=== PATIENT | female | born 1995 | race Caucasian/White ===

== ENCOUNTER 2020-06-27 10:56 | Emergency (ER) | payer OTHER ==
[2020-06-27 11:31] VITALS: BP 154/108; PULSE 105; RESP 18; TEMP 98.1
--- NOTE | 2020-06-27 11:34 | ED ---
General Adult HPI - General Stated complaint: ENT Time Seen by Provider: 06/27/20 11:32 Source: patient, RN notes reviewed Mode of arrival: ambulatory Limitations: no limitations - History of Present Illness Initial comments: This 25-year-old female presents emergency Department chief complaint of sore throat. Patient states started last day or so. Patient states her tonsils are swollen, there is exudates. She states she's had fevers and chills. No cough or cold-like symptoms. Patient denies any headache or dizziness. Patient denies other complaints. - Related Data Previous Rx's Medication Instructions Recorded Permethrin 5% Cream [Elimite] 1 applic TOPICAL ONCE #60 g 12/15/13 Amoxicillin 500 mg PO Q8H #30 capsule 06/27/20 Allergies Allergy/AdvReac Type Severity Reaction Status Date / Time cephalexin [From Keflex] Allergy Swelling Verified 06/27/20 11:31 Review of Systems ROS Statement: Those systems with pertinent positive or pertinent negative responses have been documented in the HPI. ROS Other: All systems not noted in ROS Statement are negative. Past Medical History Past Medical History: No Reported History History of Any Multi-Drug Resistant Organisms: None Reported Past Surgical History: No Surgical Hx Reported Past Psychological History: No Psychological Hx Reported Past Alcohol Use History: Occasional Past Drug Use History: None Reported General Exam Limitations: no limitations General appearance: alert, in no apparent distress Head exam: Present: atraumatic, normocephalic, normal inspection Eye exam: Present: normal appearance, PERRL, EOMI. Absent: scleral icterus, conjunctival injection, periorbital swelling ENT exam: Present: mucous membranes moist, TM's normal bilaterally, normal external ear exam. Absent: normal oropharynx (Erythematous posterior pharynx, exudates noted) Neck exam: Present: normal inspection, full ROM. Absent: tenderness, m eningismus, lymphadenopathy Respiratory exam: Present: normal lung sounds bilaterally. Absent: respiratory distress, wheezes, rales, rhonchi, stridor Cardiovascular Exam: Present: regular rate, normal rhythm, normal heart sounds. Absent: systolic murmur, diastolic murmur, rubs, gallop, clicks Course Vital Signs 06/27/20 11:29 Temperature 98.1 F Pulse Rate 105 H Respiratory 18 Rate Blood Pressure 154/108 O2 Sat by Pulse 99 Oximetry Medical Decision Making - Medical Decision Making Patient has clinical strep parameters, tonsillitis. Patient was started on amoxicillin. Patient is concerned about exposure to Covid. Swab was performed. Patient discharged in stable condition. Disposition Clinical Impression: Acute pharyngitis, Tonsillitis Disposition: HOME SELF-CARE Condition: Stable Instructions (If sedation given, give patient instructions): Pharyngitis (ED) Additional Instructions: Please return to the Emergency Department if symptoms worsen or any other concerns. Prescriptions: Amoxicillin 500 mg PO Q8H #30 capsule Is patient prescribed a controlled substance at d/c from ED?: No Referrals: None,Stated [Primary Care Provider] - 1-2 days Time of Disposition: 11:34
== END 2020-06-27 13:06 | disposition home or self-care (01) ==
LOC: EC 10:56
DX: J03.90 Acute tonsillitis, unspecified (principal)
CPT/HCPCS: 87635; 99283

== ENCOUNTER 2021-01-05 09:45 | Emergency (ER) | payer OTHER ==
--- NOTE | 2021-01-05 10:20 | ED ---
URI HPI - General Chief Complaint: Upper Respiratory Infection Stated Complaint: sorethroat Time Seen by Provider: 01/05/21 10:11 Source: patient, RN notes reviewed Mode of arrival: ambulatory Limitations: no limitations - History of Present Illness Initial Comments: Patient is 25-year-old female presents to ED for cough and congestion. Patient states started this past Wednesday just generalized cough congestion and slight fatigue. Patient denies any nausea vomiting fever, any changes in diet, bowel movements, urination. Patient denies any shortness of breath at this time. Patient is currently staying at the [facility]. Patient reports similar symptoms and child is brought with. - Related Data Previous Rx's Medication Instructions Recorded Permethrin 5% Cream [Elimite] 1 applic TOPICAL ONCE #60 g 12/15/13 Amoxicillin 500 mg PO Q8H #30 capsule 06/27/20 Azithromycin [Zithromax Z-pack (6 0 mg PO DIRECTED #1 packet 01/05/21 tabs)] Allergies Allergy/AdvReac Type Severity Reaction Status Date / Time cephalexin [From Keflex] Allergy Swelling Verified 01/05/21 09:59 Review of Systems ROS Statement: Those systems with pertinent positive or pertinent negative responses have been documented in the HPI. ROS Other: All systems not noted in ROS Statement are negative. Past Medical History Past Medical History: No Reported History History of Any Multi-Drug Resistant Organisms: None Reported Past Surgical History: No Surgical Hx Reported Past Psychological History: No Psychological Hx Reported Smoking Status: Vaper Past Alcohol Use History: Occasional Past Drug Use History: None Reported General Exam Limitations: no limitations General appearance: alert, in no apparent distress Expanded Throat exam: other (Erythematous posterior pharynx) Respiratory exam: Present: normal lung sounds bilaterally. Absent: respiratory distress, wheezes, rales, rhonchi, stridor Cardiovascular Exam: Present: normal rhythm, tachycardia, normal heart sounds. Absent: systolic murmur, diastolic murmur, rubs, gallop, clicks GI/Abdominal exam: Present: soft, normal bowel sounds. Absent: distended, tenderness, guarding, rebound, rigid Neurological exam: Present: alert, oriented X3 Skin exam: Present: warm, dry, intact, normal color. Absent: rash Course Vital Signs 01/05/21 09:57 Temperature 98.0 F Pulse Rate 101 H Respiratory 18 Rate Blood Pressure 133/91 O2 Sat by Pulse 98 Oximetry Medical Decision Making - Medical Decision Making Patient's COVID-19 is negative. Patient's daughter is positive for pneumonia, negative RSV and influenza patient has upper respiratory infection discharged in stable condition. - Lab Data Lab Results 01/05/21 Range/Units 10:25 Coronavirus (PCR) Not Detected (Not Detectd) Disposition Clinical Impression: Upper respiratory tract infection Disposition: HOME SELF-CARE Condition: Stable Instructions (If sedation given, give patient instructions): Upper Respiratory Infection (ED) Additional Instructions: Please return to the Emergency Department if symptoms worsen or any other concerns. Prescriptions: Azithromycin [Zithromax Z-pack (6 tabs)] 0 mg PO DIRECTED #1 packet Is patient prescribed a controlled substance at d/c from ED?: No Referrals: Scarlet Richey MD [Primary Care Provider] - 1-2 days Time of Disposition: 11:09
[2021-01-05 11:25] VITALS: BP 128/78; PULSE 78; RESP 16; TEMP 98.4
== END 2021-01-05 11:24 | disposition home or self-care (01) ==
LOC: EC 09:45
DX: J06.9 Acute upper respiratory infection, unspecified (principal); Z20.822 Contact with and (suspected) exposure to COVID-19; F17.290 Nicotine dependence, other tobacco product, uncomplicated
CPT/HCPCS: 87635; 99283

== ENCOUNTER 2021-08-29 07:03 | Emergency (ER) | payer OTHER ==
[2021-08-29 07:27] VITALS: RESP 16; TEMP 98.2
[2021-08-29] MEDS ORDERED: SODIUM CHLORIDE 0.9% 1,000 ML IV STA (07:47)
[2021-08-29] MEDS ORDERED: diphenhydrAMINE 50 MG/ML 1 ML VIAL IVP STA (07:47)
--- NOTE | 2021-08-29 07:53 | ED ---
General Adult HPI - General Chief complaint: Nausea/Vomiting/Diarrhea Stated complaint: Vomiting, 16 weeks Time Seen by Provider: 08/29/21 07:40 Source: patient, RN notes reviewed, old records reviewed Mode of arrival: ambulatory Limitations: no limitations - History of Present Illness Initial comments: 26-year-old female presents to the emergency room with several weeks of nausea and vomiting. Patient states that she is [address] Armas and has been on Zofran and then changed to Reglan 2 days ago. She states that she's lost 8 pounds in the past 2 days,she was 179 pounds is now 171. States that she cannot eat or drink anything without vomiting. She states her abdomen hurts from persistent vomiting. She denies any vaginal bleeding, discharge or dysuria. This is her second , she has a 2-year-old. She states that she does vape daily. -: week(s) Location: abdomen Severity scale (1-10): 3 Quality: dull Consistency: intermittent Improves with: none Worsens with: other (vomiting) Associated Symptoms: nausea/vomiting, other (weight loss 8 pounds in 2 days) Treatments Prior to Arrival: other (Zofran and Reglan) - Related Data Home Medications Medication Instructions Recorded Confirmed Metoclopramide [Reglan] 10 mg PO Q8H PRN 08/29/21 08/29/21 Vits96/Iron Fum/Folic 1 tab PO DAILY 08/29/21 08/29/21 [ Tablet] Allergies Allergy/AdvReac Type Severity Reaction Status Date / Time cephalexin [From Keflex] Allergy Swelling Verified 08/29/21 08:20 Review of Systems ROS Statement: Those systems with pertinent positive or pertinent negative responses have been documented in the HPI. ROS Other: All systems not noted in ROS Statement are negative. Past Medical History Past Medical History: No Reported History History of Any Multi-Drug Resistant Organisms: None Reported Past Surgical History: No Surgical Hx Reported Past Psychological History: No Psychological Hx Reported Smoking Status: Vaper Past Alcohol Use History: Occasional Past Drug Use History: Marijuana General Exam Limitations: no limitations General appearance: alert, in no apparent distress Head exam: Present: atraumatic Eye exam: Present: normal appearance. Absent: scleral icterus, conjunctival injection, periorbital swelling Neck exam: Present: full ROM. Absent: tenderness, meningismus Respiratory exam: Present: normal lung sounds bilaterally. Absent: respiratory distress, accessory muscle use Cardiovascular Exam: Present: regular rate, normal heart sounds GI/Abdominal exam: Present: soft. Absent: tenderness, rigid Extremities exam: Present: normal inspection, full ROM, normal capillary refill. Absent: tenderness, pedal edema Back exam: Present: normal inspection, full ROM. Absent: tenderness, CVA tenderness (R), CVA tenderness (L), rash noted Neurological exam: Present: alert, oriented X3, normal gait Psychiatric exam: Present: anxious Skin exam: Present: warm, dry, intact, normal color. Absent: cyanosis, diaphoretic, petechiae, pallor Course Vital Signs 08/29/21 08/29/21 08/29/21 07:24 08:15 09:24 Temperature 98.2 F Pulse Rate 94 83 92 Respiratory 16 16 16 Rate Blood Pressure 122/89 120/84 118/90 O2 Sat by Pulse 97 96 100 Oximetry Medical Decision Making - Medical Decision Making Patient's potassium is 2.6. She was given 40 of K-Dur orally and offered 10meq IV piggyback but refused. I did discuss admission for hypokalemia and persistent hyperemesis in and she declined stating she has noted take care of [id number] son. She states that she will sign out AGAINST MEDICAL ADVICE if necessary. She states that she is feeling better after the Benadryl and IV fluids and will increase her potassium intake at home and follow up with her INSURANCE COUNSELOR. Patient is capable of making her own decisions and I explained the concerns regarding hypokalemia. She understands the risks of leaving but states needs to do what is best for her child at home. Case discussed with Dr. Castillo. - Lab Data Result diagrams: 08/29/21 08:05 08/29/21 08:05 Lab Results 08/29/21 08/29/21 08/29/21 Range/Units 08:05 08:05 08:05 WBC 5.8 (3.8-10.6) k/uL RBC 4.48 (3.80-5.40) m/uL Hgb 11.6 (11.4-16.0) gm/dL Hct 34.8 (34.0-46.0) % MCV 77.6 L (80.0-100.0) fL MCH 26.0 (25.0-35.0) pg MCHC 33.5 (31.0-37.0) g/dL RDW 15.7 H (11.5-15.5) % Plt Count 240 (150-450) k/uL MPV 10.2 Neutrophils % 67 % Lymphocytes % 23 % Monocytes % 6 % Eosinophils % 1 % Basophils % 0 % Neutrophils # 3.9 (1.3-7.7) k/uL Lymphocytes # 1.3 (1.0-4.8) k/uL Monocytes # 0.4 (0-1.0) k/uL Eosinophils # 0.1 (0-0.7) k/uL Basophils # 0.0 (0-0.2) k/uL Microcytosis Slight Sodium 135 L (137-145) mmol/L Potassium 2.6 L* (3.5-5.1) mmol/L Chloride 97 L (98-107) mmol/L Carbon Dioxide 27 (22-30) mmol/L Anion Gap 11 mmol/L BUN 3 L (7-17) mg/dL Creatinine 0.41 L (0.52-1.04) mg/dL Est GFR (CKD-EPI)AfAm >90 (>60 ml/min/1.73 sqM) Est GFR (CKD-EPI)NonAf >90 (>60 ml/min/1.73 sqM) Glucose 109 H (74-99) mg/dL Calcium 9.7 (8.4-10.2) mg/dL Total Bilirubin 0.2 (0.2-1.3) mg/dL AST 70 H (14-36) U/L ALT 28 (4-34) U/L Alkaline Phosphatase 98 (38-126) U/L Total Protein 7.3 (6.3-8.2) g/dL Albumin 3.8 (3.5-5.0) g/dL Amylase 58 (30-110) U/L Lipase 33 (23-300) U/L Urine Color Yellow Urine Appearance Cloudy H (Clear) Urine pH 6.5 (5.0-8.0) Ur Specific [place] 1.022 (1.001-1.035) Urine Protein 1+ H (Negative) Urine Glucose (UA) Negative (Negative) Urine Ketones Negative (Negative) Urine Blood Small H (Negative) Urine Nitrite Negative (Negative) Urine Bilirubin Negative (Negative) Urine Urobilinogen <2.0 (<2.0) mg/dL Ur Leukocyte Esterase Small H (Negative) Urine RBC 38 H (0-5) /hpf Urine WBC 8 H (0-5) /hpf Ur Squamous Epith Cells 28 H (0-4) /hpf Urine Mucus Many H (None) /hpf Disposition Clinical Impression: Hyperemesis arising during Disposition: Left Against Medical Advice Instructions (If sedation given, give patient instructions): Acute Nausea and Vomiting (ED) Is patient prescribed a controlled substance at d/c from ED?: No Referrals: None,Stated [Primary Care Provider] - 1-2 days Time of Disposition: 09:47
[2021-08-29 08:19] LABS: Basophils % (A) 0 %; Eosinophils # (A) 0.1 k/uL (0-0.7); Eosinophils % (A) 1 %; HCT 34.8 % (34.0-46.0); HGB 11.6 gm/dL (11.4-16.0); Lymphocytes # (A) 1.3 k/uL (1.0-4.8); Lymphocytes % (A) 23 %; MCHC 33.5 g/dL (31.0-37.0); MCV 77.6 fL (80.0-100.0); Mean Platelet Volume 10.2; Microcytosis Slight; Monocytes # (A) 0.4 k/uL (0-1.0); Monocytes % (A) 6 %; Neutrophils # (A) 3.9 k/uL (1.3-7.7); Neutrophils % (A) 67 %; Platelet Count 240 k/uL (150-450); RBC 4.48 m/uL (3.80-5.40); RDW 15.7 % (11.5-15.5); WBC 5.8 k/uL (3.8-10.6)
[2021-08-29 08:32] LABS: Appearance,Urine Cloudy (Clear); Bilirubin,Urine Negative (Negative); Blood,Urine Small (Negative); Color,Urine Yellow; Glucose,Urine (UA) Negative (Negative); Ketones,Urine Negative (Negative); Leukocyte Esterase,Urine Small (Negative); Mucus,Urine Many /hpf; Nitrite,Urine Negative (Negative); PH, Urine 6.5 (5.0-8.0); Protein,Urine 1+ (Negative); RBC,Urine 38 /hpf (0-5); Specific Gravity,Urine 1.022 (1.001-1.035); Squamous Epithelial Cell,Urine 28 /hpf (0-4); Urobilinogen,Urine <2.0 mg/dL (<2.0); WBC,Urine 8 /hpf (0-5)
[2021-08-29 08:35] LABS: ALT 28 U/L (4-34); AST 70 U/L (14-36); African American GFR (CKD) >90 (>60 ml/min/1.73 sqM); Alkaline Phosphatase 98 U/L (38-126); Blood Urea Nitrogen 3 mg/dL (7-17); Calcium 9.7 mg/dL (8.4-10.2); Carbon Dioxide 27 mmol/L (22-30); Lipase 33 U/L (23-300); Non-African American GFR(CKD) >90 (>60 ml/min/1.73 sqM); Total Bilirubin 0.2 mg/dL (0.2-1.3)
[2021-08-29 09:05] LABS: Albumin 3.8 g/dL (3.5-5.0); Amylase 58 U/L (30-110); Anion Gap 11 mmol/L; Chloride 97 mmol/L (98-107); Glucose 109 mg/dL (74-99); Sodium 135 mmol/L (137-145); Total Protein 7.3 g/dL (6.3-8.2)
[2021-08-29 09:11] LABS: Potassium 2.6 mmol/L (3.5-5.1)
[2021-08-29] MEDS ORDERED: POTASSIUM CHLORIDE ER 20 MEQ TAB.ER PO STA (09:17)
[2021-08-29 09:26] VITALS: BP 118/90; PULSE 92
[2021-08-29] MEDS ORDERED: POTASSIUM CHLORIDE 10 MEQ in WATER FOR INJECTION 1 100ML.BAG IVPB STA (09:26)
== END 2021-08-29 09:41 | disposition left against medical advice (07) ==
LOC: EC 07:03
DX: O21.0 Mild hyperemesis gravidarum (principal); F17.209 Nicotine dependence, unspecified, with unspecified nicotine-induced disorders; Z88.1 Allergy status to other antibiotic agents; Z3A.16 16 weeks gestation of pregnancy
CPT/HCPCS: 36415; 80053; 82150; 83690; 85025; 81001; 99285; 96374; 96361; J1200

== ENCOUNTER 2021-09-21 06:11 | Emergency (ER) | payer OTHER ==
[2021-09-21] MEDS ORDERED: SODIUM CHLORIDE 0.9% 1,000 ML IV STA ×2 (06:33→10:14)
[2021-09-21] MEDS ORDERED: METOCLOPRAMIDE 5 MG/ML 2 ML VIAL IVP STA (06:33)
[2021-09-21] MEDS ORDERED: PYRIDOXINE 100 MG/ML 1 ML VIAL IVP ONE (06:33)
--- NOTE | 2021-09-21 06:41 | ED ---
Nausea/Vomiting/Diarrhea HPI - General Chief complaint: Nausea/Vomiting/Diarrhea Stated complaint: vomiting Time Seen by Provider: 09/21/21 06:21 Source: patient, RN notes reviewed Mode of arrival: ambulatory Limitations: no limitations - History of Present Illness Initial comments: This is a 26-year-old female who is 19 weeks and presents to the emergency department for nausea and vomiting. Patient states that one week ago she developed fevers, chills, and body aches. She took an at home COVID test at that time which was negative. Those symptoms have resolved, however 3-4 days ago, she developed nausea and vomiting. She has been trying to control this with Benadryl, however this has not improved her symptoms. She then tried taking a Reglan this morning, however she proceeded to throw it back up. She was evaluated here on 08/29 for dehydration secondary to nausea and vomiting. She was found to have hypokalemia. It was advised that she stay for observation, however she ended up leaving AMA, as she had to take care of her 2-year-old son. She does have a follow-up with Dr. Armas tomorrow for an anatomy scan and physician visit. Denies any vaginal bleeding or discharge. Denies any fevers, chills, sore throat, cough, dyspnea, chest pain, palpitations, diarrhea, back pain, or headaches. MD complaint: nausea, vomiting Onset/Timin -: days(s) Associated Abdominal Pain: Yes (Generalized soreness from repeated episodes of vomiting) - Related Data Home Medications Medication Instructions Recorded Confirmed Metoclopramide [Reglan] 10 mg PO Q8H PRN 08/29/21 08/29/21 Vits96/Iron Fum/Folic 1 tab PO DAILY 08/29/21 08/29/21 [ Tablet] Previous Rx's Medication Instructions Recorded Famotidine [Pepcid] 20 mg PO BID PRN #20 tablet 09/21/21 Nitrofurantoin Monohyd/M-Cryst 100 mg PO Q12HR 7 Days #14 cap 09/21/21 [Macrobid] Ondansetron Odt [Zofran Odt] 4 mg PO Q8HR PRN #20 tab 09/21/21 Allergies Allergy/AdvReac Type Severity Reaction Status Date / Time cephalexin [From Keflex] Allergy Swelling Verified 09/21/21 06:17 Review of Systems ROS Statement: Those systems with pertinent positive or pertinent negative responses have been documented in the HPI. ROS Other: All systems not noted in ROS Statement are negative. Past Medical History Past Medical History: No Reported History History of Any Multi-Drug Resistant Organisms: None Reported Past Surgical History: No Surgical Hx Reported Past Psychological History: No Psychological Hx Reported Smoking Status: Vaper Past Alcohol Use History: Occasional Past Drug Use History: Marijuana General Exam Limitations: no limitations General appearance: alert, in no apparent distress Head exam: Present: atraumatic, normocephalic, normal inspection ENT exam: Present: normal exam, mucous membranes moist, TM's normal bilaterally, normal external ear exam, other (tonsillar hypertrophy which is chronic per the patient) Neck exam: Present: normal inspection. Absent: tenderness, meningismus, lymphadenopathy Respiratory exam: Present: normal lung sounds bilaterally. Absent: respiratory distress, wheezes, rales, rhonchi, stridor Cardiovascular Exam: Present: regular rate, normal rhythm, normal heart sounds. Absent: systolic murmur, diastolic murmur, rubs, gallop, clicks GI/Abdominal exam: Present: normal bowel sounds Neurological exam: Present: alert, oriented X3, CN II-XII intact Psychiatric exam: Present: normal affect, normal mood Skin exam: Present: warm, dry, intact, normal color. Absent: rash Course Vital Signs 09/21/21 09/21/21 09/21/21 06:17 07:31 09:40 Temperature 98.2 F 98.3 F Pulse Rate 98 106 H 81 Respiratory 16 18 18 Rate Blood Pressure 108/72 119/100 117/58 O2 Sat by Pulse 96 97 97 Oximetry 09/21/21 11:21 Temperature 98.1 F Pulse Rate 82 Respiratory 18 Rate Blood Pressure 117/70 O2 Sat by Pulse 98 Oximetry Medical Decision Making - Medical Decision Making This is a 26-year-old female who presents to the emergency department for nausea and vomiting. She was initially given IV fluids, Reglan, vitamin B6, Pepcid, and Ofirmev. She was a candidate for Ofirmev, as she is and can only take Tylenol and she was unable to keep down any foods or liquids. She initially felt much better, however she ended up trying to take a Macrobid for a urinary tract infection, and taking this on an empty stomach caused her to feel sick again. She was given an additional dose of IV fluids, Pepcid, Zofran, Benadryl, and Reglan. She did have some improvement, however she did still have some nausea. Patient attributes this to taking the Macrobid on an empty stomach. Given the blood in the urine, in obstetrics ultrasound was obtained, in the event she was having vaginal bleeding. This revealed a viable IUP with a heart rate of 160 BPM. Her potassium was replaced with K-dur 20 meq. Patient feels stable for discharge home. She will follow up with Dr. Armas as scheduled tomorrow. Prescriptions for Macrobid, Zofran, and Pepcid sent to the pharmacy. Advised she slowly advance her diet as tolerated. Return precautions reviewed in depth, the patient is instructed to return to the emergency department with any new, worsening, or concerning symptoms. Patient verbalized understanding. This case was discussed in detail with the attending ED physician. Presentation, findings, and treatment plan discussed in detail as well. - Lab Data Result diagrams: 09/21/21 07:00 09/21/21 07:00 Lab Results 09/21/21 09/21/21 09/21/21 Range/Units 07:00 07:00 07:00 WBC 5.5 (3.8-10.6) k/uL RBC 4.59 (3.80-5.40) m/uL Hgb 11.8 (11.4-16.0) gm/dL Hct 35.5 (34.0-46.0) % MCV 77.4 L (80.0-100.0) fL MCH 25.7 (25.0-35.0) pg MCHC 33.2 (31.0-37.0) g/dL RDW 15.2 (11.5-15.5) % Plt Count 233 (150-450) k/uL MPV 10.1 Neutrophils % 75 % Lymphocytes % 18 % Monocytes % 4 % Eosinophils % 1 % Basophils % 0 % Neutrophils # 4.2 (1.3-7.7) k/uL Lymphocytes # 1.0 (1.0-4.8) k/uL Monocytes # 0.2 (0-1.0) k/uL Eosinophils # 0.0 (0-0.7) k/uL Basophils # 0.0 (0-0.2) k/uL Microcytosis Slight Sodium 136 L (137-145) mmol/L Potassium 3.0 L (3.5-5.1) mmol/L Chloride 98 (98-107) mmol/L Carbon Dioxide 24 (22-30) mmol/L Anion Gap 14 mmol/L BUN 6 L (7-17) mg/dL Creatinine 0.43 L (0.52-1.04) mg/dL Est GFR (CKD-EPI)AfAm >90 (>60 ml/min/1.73 sqM) Est GFR (CKD-EPI)NonAf >90 (>60 ml/min/1.73 sqM) Glucose 129 H (74-99) mg/dL Calcium 9.0 (8.4-10.2) mg/dL Total Bilirubin 0.2 (0.2-1.3) mg/dL AST 44 H (14-36) U/L ALT 25 (4-34) U/L Alkaline Phosphatase 140 H (38-126) U/L Total Protein 7.5 (6.3-8.2) g/dL Albumin 3.8 (3.5-5.0) g/dL Amylase 74 (30-110) U/L Lipase 184 (23-300) U/L HCG, Quant 82608.2 mIU/mL Urine Color Dark Brown Urine Appearance Cloudy H (Clear) Urine pH 6.5 (5.0-8.0) Ur Specific [place] 1.037 H (1.001-1.035) Urine Protein 2+ H (Negative) Urine Glucose (UA) Negative (Negative) Urine Ketones Trace H (Negative) Urine Blood Large H (Negative) Urine Nitrite Negative (Negative) Urine Bilirubin 1+ H (Negative) Urine Urobilinogen 2.0 (<2.0) mg/dL Ur Leukocyte Esterase Moderate H (Negative) Urine RBC >182 H (0-5) /hpf Urine WBC 25 H (0-5) /hpf Ur Squamous Epith Cells 48 H (0-4) /hpf Urine Bacteria Occasional H (None) /hpf Hyaline Casts 20 H (0-2) /lpf Urine Mucus Many H (None) /hpf Urine Opiates Screen (NotDetected) Ur Oxycodone Screen (NotDetected) Urine Methadone Screen (NotDetected) Ur Propoxyphene Screen (NotDetected) Ur Barbiturates Screen (NotDetected) U Tricyclic Antidepress (NotDetected) Ur Phencyclidine Scrn (NotDetected) Ur Amphetamines Screen (NotDetected) U Methamphetamines Scrn (NotDetected) U Benzodiazepines Scrn (NotDetected) Urine Cocaine Screen (NotDetected) U Marijuana (THC) Screen (NotDetected) Coronavirus (PCR) (Not Detectd) Influenza Type A RNA (Not Detectd) Influenza Type B (PCR) (Not Detectd) 09/21/21 09/21/21 09/21/21 Range/Units 07:00 07:37 07:37 WBC (3.8-10.6) k/uL RBC (3.80-5.40) m/uL Hgb (11.4-16.0) gm/dL Hct (34.0-46.0) % MCV (80.0-100.0) fL MCH (25.0-35.0) pg MCHC (31.0-37.0) g/dL RDW (11.5-15.5) % Plt Count (150-450) k/uL MPV Neutrophils % % Lymphocytes % % Monocytes % % Eosinophils % % Basophils % % Neutrophils # (1.3-7.7) k/uL Lymphocytes # (1.0-4.8) k/uL Monocytes # (0-1.0) k/uL Eosinophils # (0-0.7) k/uL Basophils # (0-0.2) k/uL Microcytosis Sodium (137-145) mmol/L Potassium (3.5-5.1) mmol/L Chloride (98-107) mmol/L Carbon Dioxide (22-30) mmol/L Anion Gap mmol/L BUN (7-17) mg/dL Creatinine (0.52-1.04) mg/dL Est GFR (CKD-EPI)AfAm (>60 ml/min/1.73 sqM) Est GFR (CKD-EPI)NonAf (>60 ml/min/1.73 sqM) Glucose (74-99) mg/dL Calcium (8.4-10.2) mg/dL Total Bilirubin (0.2-1.3) mg/dL AST (14-36) U/L ALT (4-34) U/L Alkaline Phosphatase (38-126) U/L Total Protein (6.3-8.2) g/dL Albumin (3.5-5.0) g/dL Amylase (30-110) U/L Lipase (23-300) U/L HCG, Quant mIU/mL Urine Color Urine Appearance (Clear) Urine pH (5.0-8.0) Ur Specific [place] (1.001-1.035) Urine Protein (Negative) Urine Glucose (UA) (Negative) Urine Ketones (Negative) Urine Blood (Negative) Urine Nitrite (Negative) Urine Bilirubin (Negative) Urine Urobilinogen (<2.0) mg/dL Ur Leukocyte Esterase (Negative) Urine RBC (0-5) /hpf Urine WBC (0-5) /hpf Ur Squamous Epith Cells (0-4) /hpf Urine Bacteria (None) /hpf Hyaline Casts (0-2) /lpf Urine Mucus (None) /hpf Urine Opiates Screen Not Detected (NotDetected) Ur Oxycodone Screen Not Detected (NotDetected) Urine Methadone Screen Not Detected (NotDetected) Ur Propoxyphene Screen Not Detected (NotDetected) Ur Barbiturates Screen Not Detected (NotDetected) U Tricyclic Antidepress Not Detected (NotDetected) Ur Phencyclidine Scrn Not Detected (NotDetected) Ur Amphetamines Screen Not Detected (NotDetected) U Methamphetamines Scrn Not Detected (NotDetected) U Benzodiazepines Scrn Not Detected (NotDetected) Urine Cocaine Screen Not Detected (NotDetected) U Marijuana (THC) Screen Detected H (NotDetected) Coronavirus (PCR) Not Detected (Not Detectd) Influenza Type A RNA Not Detected (Not Detectd) Influenza Type B (PCR) Not Detected (Not Detectd) - Radiology Data Radiology results: report reviewed, image reviewed Disposition Clinical Impression: Dehydration, Nausea and vomiting in Disposition: HOME SELF-CARE Instructions (If sedation given, give patient instructions): Nausea and Vomiting in (ED) Additional Instructions: Return to the emergency department with any new, worsening, or concerning symptoms. Take the antibiotic as prescribed and use the Zofran and Pepcid as needed. You may try taking over the counter Tums, Rolaids, and Mylanta for symptoms. Avoid the Pepto-Bismol until speaking with Dr. Armas tomorrow. Prescriptions: Nitrofurantoin Monohyd/M-Cryst [Macrobid] 100 mg PO Q12HR 7 Days #14 cap Famotidine [Pepcid] 20 mg PO BID PRN #20 tablet PRN Reason: Pain Ondansetron Odt [Zofran Odt] 4 mg PO Q8HR PRN #20 tab PRN Reason: Nausea And Vomiting Is patient prescribed a controlled substance at d/c from ED?: No Referrals: None,Stated [Primary Care Provider] - 1-2 days
[2021-09-21 07:22] LABS: Basophils % (A) 0 %; Eosinophils % (A) 1 %; HCT 35.5 % (34.0-46.0); HGB 11.8 gm/dL (11.4-16.0); Lymphocytes % (A) 18 %; MCH 25.7 pg (25.0-35.0); MCHC 33.2 g/dL (31.0-37.0); MCV 77.4 fL (80.0-100.0); Mean Platelet Volume 10.1; Microcytosis Slight; Monocytes # (A) 0.2 k/uL (0-1.0); Monocytes % (A) 4 %; Neutrophils # (A) 4.2 k/uL (1.3-7.7); Neutrophils % (A) 75 %; Platelet Count 233 k/uL (150-450); RBC 4.59 m/uL (3.80-5.40); RDW 15.2 % (11.5-15.5); WBC 5.5 k/uL (3.8-10.6)
[2021-09-21 07:23] LABS: ALT 25 U/L (4-34); AST 44 U/L (14-36); African American GFR (CKD) >90 (>60 ml/min/1.73 sqM); Albumin 3.8 g/dL (3.5-5.0); Alkaline Phosphatase 140 U/L (38-126); Amylase 74 U/L (30-110); Anion Gap 14 mmol/L; Blood Urea Nitrogen 6 mg/dL (7-17); Carbon Dioxide 24 mmol/L (22-30); Chloride 98 mmol/L (98-107); Glucose 129 mg/dL (74-99); Lipase 184 U/L (23-300); Non-African American GFR(CKD) >90 (>60 ml/min/1.73 sqM); Sodium 136 mmol/L (137-145); Total Bilirubin 0.2 mg/dL (0.2-1.3); Total Protein 7.5 g/dL (6.3-8.2)
[2021-09-21 07:26] LABS: Appearance,Urine Cloudy (Clear); Bacteria,Urine Occasional /hpf; Bilirubin,Urine 1+ (Negative); Blood,Urine Large (Negative); Color,Urine Dark Brown; Glucose,Urine (UA) Negative (Negative); Hyaline Casts,Urine 20 /lpf (0-2); Ketones,Urine Trace (Negative); Leukocyte Esterase,Urine Moderate (Negative); Mucus,Urine Many /hpf; Nitrite,Urine Negative (Negative); PH, Urine 6.5 (5.0-8.0); Protein,Urine 2+ (Negative); RBC,Urine >182 /hpf (0-5); Specific Gravity,Urine 1.037 (1.001-1.035); Squamous Epithelial Cell,Urine 48 /hpf (0-4); WBC,Urine 25 /hpf (0-5)
[2021-09-21] MEDS ORDERED: POTASSIUM CHLORIDE ER 20 MEQ TAB.ER PO STA (07:27)
[2021-09-21] MEDS ORDERED: ACETAMINOPHEN IV (For NPO) 1,000 MG in EMPTY BAG 1 BAG IVPB STA (07:28)
[2021-09-21] MEDS ORDERED: diphenhydrAMINE 50 MG/ML 1 ML VIAL IVP STA (07:28)
[2021-09-21 07:31] LABS: Amphetamine Screen,Urine Not Detected (NotDetected); Benzodiazepines Screen,Urine Not Detected (NotDetected); Cocaine Screen,Urine Not Detected (NotDetected); Opiate Screen,Urine Not Detected (NotDetected); Phencyclidine Screen,Urine Not Detected (NotDetected); Urn Cannabinoid Scrn Detected (NotDetected)
[2021-09-21 07:32] LABS: Barbiturate Screen,Urine Not Detected (NotDetected); Methadone Screen, Urine Not Detected (NotDetected); Oxycodone Screen, Urine Not Detected (NotDetected); Tricyclic Antidepressant,Urine Not Detected (NotDetected)
[2021-09-21 07:33] VITALS: RESP 18
[2021-09-21 08:20] LABS: HCG,Quantitative Serum 30102.2 mIU/mL
--- NOTE | 2021-09-21 08:48 | US ---
EXAMINATION TYPE: US OB >= 14 wk fetus DATE OF EXAM: 09/21/2021 COMPARISON: None CLINICAL HISTORY: Lower abdominal cramping, hematuria. Known . TECHNIQUE: Transabdominal (TA) GESTATIONAL AGE / DATING Physician Established: (19 weeks/2 days) EDC: 02/13/2022 Dates by LMP: (19 weeks/2 days) EDC: 02/13/2022 Dates by First Scan: No previous this is first scan Dates by Current Scan: (19 weeks/4 days) EDC: 02/11/2022 SURVEY IUP: Single PLACENTA: Anterior PREVIA: No Previa MAAME: 13.9 cm Normal CERVICAL LENGTH (transabdominal: norm > 3.0cm): 3.4 cm BIOMETRY PRESENTATION: Vertex BPD: 4.6 cm 19 weeks / 6 days HC: 17.0 cm 19 weeks / 4 days AC: 14.4 cm 19 weeks / 5 days FL: 3.2 cm 20 weeks / 1 days ESTIMATED WEIGHT IN GRAMS: 318.8 grams ESTIMATED WEIGHT IN LBS/OZ: 0 lbs. 11 oz. WEIGHT PERCENTAGE BASED ON ESTABLISHED DATES: 79.5% HC/AC: 1.18 Normal FL/AC: 22.5 Normal HEART RATE: 160 bpm RHYTHM: Normal Viable IUP that correlates with patient's established due date. Single live intrauterine gestation is confirmed as gestational sac and pole are seen. Normal ce phalad presentation is present. No cervical thinning. No placenta previa. Estimated amniotic fluid in dex within normal limits. biometry measurements congruent and within normal limits for expected delivery date. IMPRESSION: As above.
[2021-09-21] MEDS ORDERED: NITROFURANTOIN MONOHYD/M-CRYST 100 MG CAP PO STA (08:58)
[2021-09-21] MEDS ORDERED: FAMOTIDINE 20 MG/2 ML VIAL IV STA ×2 (09:20→10:14)
[2021-09-21] MEDS ORDERED: ONDANSETRON 4 MG/2 ML VIAL IVP STA (09:22)
[2021-09-21 11:25] VITALS: BP 117/70; PULSE 82; TEMP 98.1
== END 2021-09-21 11:25 | disposition home or self-care (01) ==
LOC: EC 06:11
DX: O21.9 Vomiting of pregnancy, unspecified (principal); Z3A.19 19 weeks gestation of pregnancy; F17.209 Nicotine dependence, unspecified, with unspecified nicotine-induced disorders; Z88.1 Allergy status to other antibiotic agents; Z20.822 Contact with and (suspected) exposure to COVID-19
CPT/HCPCS: 36415; 80053; 82150; 83690; 85025; 81001; 84702; 80306; 87086; 87502; 87635; 76805; 99284; 96365; 96361; 96366; 96375; 96376; J1200; J3415; J2765; J2405; J0131

== ENCOUNTER 2022-02-06 20:41 | Inpatient (IN) | payer OTHER ==
[2022-02-06] MEDS ORDERED: TERBUTALINE 1 MG/ML VIAL SQ PRN (21:14)
[2022-02-06] MEDS ORDERED: LIDOCAINE 0.5% (PF) 5 MG/ML (50 ML SDV) SQ PRN (21:14)
[2022-02-06] MEDS: LACTATED RINGERS 1,000 ML IV SCH (21:15)
[2022-02-06] MEDS ORDERED: OXYTOCIN 30 UNITS/500 ML NS 30 UNIT in SALINE 1 500ML.BAG IV SCH (21:15)
[2022-02-06] MEDS ORDERED: AMPICILLIN 2,000 MG in SODIUM CHLORIDE 0.9% 100 ML IVPB ONE (21:30)
[2022-02-06 21:51] LABS: Basophils % (A) 0 %; Eosinophils # (A) 0.1 k/uL (0-0.7); Eosinophils % (A) 1 %; HCT 29.1 % (34.0-46.0); HGB 9.9 gm/dL (11.4-16.0); Hypochromasia Slight; Lymphocytes # (A) 2.3 k/uL (1.0-4.8); Lymphocytes % (A) 28 %; MCH 25.9 pg (25.0-35.0); MCHC 33.8 g/dL (31.0-37.0); MCV 76.5 fL (80.0-100.0); Monocytes # (A) 0.4 k/uL (0-1.0); Monocytes % (A) 5 %; Neutrophils # (A) 5.1 k/uL (1.3-7.7); Neutrophils % (A) 64 %; Platelet Count 179 k/uL (150-450); RBC 3.81 m/uL (3.80-5.40)
[2022-02-06 21:58] LABS: ALT 76 U/L (4-34); AST 119 U/L (14-36); African American GFR (CKD) >90 (>60 ml/min/1.73 sqM); Blood Urea Nitrogen 4 mg/dL (7-17); LDH 537 U/L (313-618); Magnesium 1.7 mg/dL (1.6-2.3); Non-African American GFR(CKD) >90 (>60 ml/min/1.73 sqM); Uric Acid 5.2 mg/dL (3.7-7.4)
[2022-02-06 22:28] LABS: Appearance,Urine Cloudy (Clear); Bacteria,Urine Rare /hpf; Bilirubin,Urine Negative (Negative); Blood,Urine Small (Negative); Color,Urine Yellow; Glucose,Urine (UA) Negative (Negative); Ketones,Urine Negative (Negative); Leukocyte Esterase,Urine Negative (Negative); Mucus,Urine Occasional /hpf; Nitrite,Urine Negative (Negative); PH, Urine 7.5 (5.0-8.0); Protein,Urine 1+ (Negative); RBC,Urine 40 /hpf (0-5); Specific Gravity,Urine 1.011 (1.001-1.035); Squamous Epithelial Cell,Urine 10 /hpf (0-4); Urobilinogen,Urine <2.0 mg/dL (<2.0); WBC,Urine 3 /hpf (0-5)
[2022-02-06 22:30] LABS: Amphetamine Screen,Urine Not Detected (NotDetected); Barbiturate Screen,Urine Not Detected (NotDetected); Benzodiazepines Screen,Urine Not Detected (NotDetected); Cocaine Screen,Urine Not Detected (NotDetected); Methadone Screen, Urine Not Detected (NotDetected); Opiate Screen,Urine Not Detected (NotDetected); Oxycodone Screen, Urine Not Detected (NotDetected); Phencyclidine Screen,Urine Not Detected (NotDetected); Tricyclic Antidepressant,Urine Not Detected (NotDetected); Urn Cannabinoid Scrn Detected (NotDetected)
[2022-02-06 22:33] LABS: INR 0.9 (<1.2); Partial Thromboplastin Time 22.2 sec (22.0-30.0); Prothrombin Time 9.7 sec (9.0-12.0)
[2022-02-06 22:39] LABS: Creatinine,Urine Random 102.2 mg/dL; Protein/Creatinine Ratio,Urine 0.763
[2022-02-06 23:21] VITALS: RESP 16
[2022-02-07] MEDS: LACTATED RINGERS 1,000 ML IV SCH ×2 (00:50→05:10)
[2022-02-07] MEDS: AMPICILLIN 1,000 MG in SODIUM CHLORIDE 0.9% 50 ML IVPB SCH ×2 (01:32→06:52)
[2022-02-07] MEDS ORDERED: CITRIC ACID-SODIUM CITRATE 15 ML CUP PO ONE (01:33)
--- NOTE | 2022-02-07 01:39 | P.HPOB ---
History of Present Illness H&P Date: 02/07/22 Chief Complaint: Spontaneous rupture membranes This is a 26-year-old female 2 para 1 with estimated date of confinement of 02/14/2022, estimated gestational age of 38-6/7 weeks, who presented to labor and delivery with complaints of spontaneous rupture of membranes at approximately 7:30 to 8 PM tonight. She denies feeling any regular contractions since that time. She denies any headaches or blurry vision. She has had nausea and vomiting and abdominal pain throughout her . She did lose about 10 pounds throughout her . She states she did vomit on but just had nausea yesterday. She does admit to using marijuana throughout her . labs: Group B streptococcus-positive One hour Glucola-165, three-hour Glucola-within normal limits Hemoglobin-10 Hepatitis B surface antigen-negative RPR-reactive, 1:1 titer with no change through the . Rubella-immune Blood type-A+ Antibody screen-negative HIV-nonreactive Random glucose-91 GC/chlamydia/Trichomonas-negative Obstetrical history: . History of 1 vaginal delivery at term. Gynecologic history: She does have a history of syphilis that she is been treated for in 2019. She is also been treated for gonorrhea and chlamydia in the past. Social history: She is single. 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 Review of Systems Constitutional: Denies chills, Denies fever Eyes: denies blurred vision, denies pain Ears, nose, mouth and throat: Denies headache, Denies sore throat Cardiovascular: Denies chest pain, Denies shortness of breath Respiratory: Denies cough Gastrointestinal: Reports abdominal pain (Contractions), Reports heartburn, Reports nausea, Reports vomiting Genitourinary: Reports pelvic pain, Reports Musculoskeletal: Reports low back pain Integumentary: Denies pruritus, Denies rash Neurological: Denies numbness, Denies weakness Psychiatric: Reports anxiety, Reports depression Past Medical History Past Medical History: No Reported History Additional Past Medical History / Comment(s): Chronic nausea and vomiting throughout her History of Any Multi-Drug Resistant Organisms: None Reported Past Surgical History: No Surgical Hx Reported Past Psychological History: No Psychological Hx Reported Smoking Status: Current every day smoker, Vaper Past Alcohol Use History: None Reported Additional Past Alcohol Use History / Comment(s): vapes, THC daily Past Drug Use History: Marijuana - Past Family History Mother Family Medical History: No Reported History Medications and Allergies Home Medications Medication Instructions Recorded Confirmed Type Famotidine [Pepcid] 20 mg PO BID PRN #20 tablet 09/21/21 02/06/22 Rx Allergies Allergy/AdvReac Type Severity Reaction Status Date / Time cephalexin [From Keflex] Allergy Swelling Verified 09/21/21 06:17 vortioxetine Allergy Swelling Verified 02/07/22 01:37 [From Trintellix] Exam Osteopathic Statement: *. No significant issues noted on an osteopathic structural exam other than those noted in the History and Physical/Consult. Vital Signs Temp Pulse Resp BP Pulse Ox 02/06/22 21:13 97.0 F L 86 16 132/91 98 Intake and Output 02/06/22 02/06/22 02/07/22 14:59 22:59 06:59 Other: # Voids 2 Weight 77.111 kg HEENT: Within normal limits Heart: Regular rate and rhythm Lungs: Clear to auscultation bilaterally Abdomen: Cervix: On admission was 3 cm and is currently 4 cm/60%/-2 station. Amnisure is positive with clear fluid noted. heart tones: Category 1, reactive Contractions: Irregular on admission Extremities: Negative Homans Results Result Diagrams: 02/06/22 21:30 02/06/22 21:30 Abnormal Lab Results - Last 24 Hours (Table) 02/06/22 02/06/22 02/06/22 Range/Units 21:30 21:30 21:30 Hgb 9.9 L (11.4-16.0) gm/dL Hct 29.1 L (34.0-46.0) % MCV 76.5 L (80.0-100.0) fL Fibrinogen 506 H (200-500) mg/dL BUN 4 L (7-17) mg/dL Creatinine 0.45 L (0.52-1.04) mg/dL AST 119 H (14-36) U/L ALT 76 H (4-34) U/L Urine Appearance (Clear) Urine Protein (Negative) Urine Blood (Negative) Urine RBC (0-5) /hpf Ur Squamous Epith Cells (0-4) /hpf Urine Bacteria (None) /hpf Urine Mucus (None) /hpf U Marijuana (THC) Screen (NotDetected) 02/06/22 02/06/22 Range/Units 22:00 22:00 Hgb (11.4-16.0) gm/dL Hct (34.0-46.0) % MCV (80.0-100.0) fL Fibrinogen (200-500) mg/dL BUN (7-17) mg/dL Creatinine (0.52-1.04) mg/dL AST (14-36) U/L ALT (4-34) U/L Urine Appearance Cloudy H (Clear) Urine Protein 1+ H (Negative) Urine Blood Small H (Negative) Urine RBC 40 H (0-5) /hpf Ur Squamous Epith Cells 10 H (0-4) /hpf Urine Bacteria Rare H (None) /hpf Urine Mucus Occasional H (None) /hpf U Marijuana (THC) Screen Detected H (NotDetected) Assessment and Plan (1) 38 weeks gestation of Current Visit: Yes Status: Acute Code(s): Z3A.38 - 38 WEEKS GESTATION OF SNOMED Code(s): 89370648 Plan: Admission for spontaneous rupture of membranes. Oxytocin augmentation of labor. Epidural anesthesia. Expectant management. Blood pressures were initially slightly elevated on admission and therefore preeclamptic lab work was obtained. She did have elevated liver enzymes that could be due to her chronic nausea and vomiting but she also had a elevated PC ratio. Will monitor blood pressures throughout her labor and if she is still having elevated blood pressures after delivery, may need to start magnesium sulfate seizure prophylaxis.
[2022-02-07] MEDS ORDERED: METHYLERGONOVINE 0.2 MG/ML 1 ML AMP IM PRN (01:41)
[2022-02-07] MEDS ORDERED: TRANEXAMIC ACID IN NACL,ISO-OS 1,000 MG in EMPTY BAG 1 BAG IV PRN (01:41)
[2022-02-07] MEDS ORDERED: CARBOPROST TROMETHAMINE 250 MCG/ML 1 ML AMP IM PRN (01:41)
[2022-02-07] MEDS ORDERED: miSOPROStoL 200 MCG TAB PO PRN (01:41)
[2022-02-07] MEDS ORDERED: OXYTOCIN 10 UNIT/ML 1 ML VIAL IM PRN (01:41)
[2022-02-07] MEDS ORDERED: OXYTOCIN 30 UNITS/500 ML NS 30 UNIT in SALINE 1 500ML.BAG IV SCH (01:45)
--- NOTE | 2022-02-07 06:02 | P.PROBDLV ---
Vaginal Delivery Note - . Vaginal Delivery Note: The patient progressed to complete dilation after spontaneous rupture membranes with clear fluid noted and oxytocin augmentation of labor. Once reaching complete, she began pushing. She did have some deep variable decelerations during pushing but she did push rather quickly to a crown. Once , baby's heart rate did get down to 70s and therefore urinate was anesthetized with 1% lidocaine and a small episiotomy was cut. With one further push, the head delivered followed by the anterior shoulder. Nose and mouth were bulb suctioned. With one further push, the remainder the infant easily delivered with nuchal cord 1 reducing around the body with delivery. She also did have a body cord noted. A viable male is noted with scores of 8 at 1 minute and 9 at 5 minutes and infant weight of 6 pounds 9.3 ounces. Her placenta delivered shortly thereafter, intact, with a three-vessel cord. Uterus contracted well after oxytocin was given and uterine massage was carried out. The perineum revealed a midline episiotomy with no further extension. This area was anesthetized with 1% lidocaine and then sutured with 3-0 and 2-0 Vicryl suture in the usual multilayer fashion. Estimated blood loss is approximately 200 mL's. Mother and are in stable condition.
[2022-02-07] MEDS ORDERED: ZOLPIDEM 5 MG TAB PO PRN (06:08)
[2022-02-07] MEDS ORDERED: HYDROCORTISONE 2.5% RECTAL CREAM 30 GM TUBE RECTAL PRN (06:08)
[2022-02-07] MEDS ORDERED: BENZOCAINE/MENTHOL SPRAY 1 GM/SPRAY AEROSOL TOPICAL PRN (06:08)
[2022-02-07] MEDS ORDERED: SIMETHICONE 80 MG CHEWABLE PO PRN (06:08)
[2022-02-07] MEDS ORDERED: diphenhydrAMINE 25 MG CAP PO PRN (06:08)
[2022-02-07] MEDS ORDERED: LANOLIN CREAM 5 GM TUBE TOPICAL PRN (06:08)
[2022-02-07] MEDS ORDERED: diphenhydrAMINE 50 MG/ML 1 ML VIAL IVP PRN ×2 (06:08)
[2022-02-07] MEDS: FAMOTIDINE 20 MG TAB PO PRN ×2 (06:44→15:28)
--- NOTE | 2022-02-07 06:50 | P.MSEPDOC ---
Presenting Problems - Arrival Data Date of Arrival on Unit: 02/06/22 Time of Arrival on Unit: 21:06 Mode of Transport: Wheelchair - Complaint OB-Reason for Admission/Chief Complaint: Rule Out SROM Comment: srom 1999 Medical History - Information : 2 Para: 1 Term: 1 : 0 Abortions: Spontaneous or Elective: 0 Number of Living Children: 1 - Gestational Age Gestational Age by CHILO (wks/days): 39 Weeks and 0 Days - History Complications: Smoker Comment: THC use Review of Systems - Review of Systems Constitutional: No problems Breast: No problems ENT: No problems Cardiovascular: No problems Respiratory: No problems Gastrointestinal: No problems Genitourinary: No problems Musculoskeletal: No problems Neurological: No problems Skin: No problems Vital Signs - Temperature Temperature: 97.9 F Temperature Source: Temporal Artery Scan - Pulse Pulse Oximetery Pulse Rate: 76 Pulse Assessment Method: Automatic Cuff - Respirations Respiratory Rate: 16 Oxygen Delivery Method: Room Air - Blood Pressure Right Arm Blood Pressure: 137/83 Blood Pressure Mean: 101 Blood Pressure Source: Automatic Cuff Medical Screen Scoring - Cervical Exam Dilation (cm): 3 Effacement (%): 70 Station: -2 Membranes: Ruptured - Assessment - Baby A Baseline FHR: 130 Heart Rate - NICHD Category: Category I (Normal) NST: Reactive Physician Notification - Physician Notified Physician Notified Date: 02/07/22 Physician Notified Time: 21:06 Physician: Dr. Chanda Arnett Order Received: Yes - Notification Comment Comment: admit for labor, PIH labs, drug screen Maternal Triage Index - Maternal Triage Index Presenting for scheduled procedure w/no complaint: No - Stat/Priority 1 Stat Priority 1: No - Urgent/Priority 2 Urgent Priority 2: No - Prompt/Priority 3 Prompt Priority 3: Yes Criteria Met for Priority 3: SROM, 38/6 Disposition - Disposition OB Disposition: Admit I agree with the RN Medical Screening Exam: Yes Case reviewed; plan agreed upon as documented in EMR&OBIX.: Yes Diagnosis: ENCOUNTER FOR FULL-TERM UNCOMPLICATED DELIVERY
[2022-02-07] MEDS ORDERED: MEASLES-MUMPS-RUBELLA VACC/PF 12,500 UNIT/0.5 ML VIAL SQ ONE (10:00)
[2022-02-07] MEDS: SENNOSIDES-DOCUSATE SODIUM 1 EACH TAB PO SCH ×2 (10:09→19:46)
[2022-02-07] MEDS: IBUPROFEN 600 MG TAB PO PRN ×2 (12:02→18:53)
[2022-02-07] MEDS: ACETAMINOPHEN TAB 325 MG TAB PO PRN ×2 (15:31→19:44)
[2022-02-07] MEDS ORDERED: ONDANSETRON 4 MG TAB PO STA (22:29)
[2022-02-07] MEDS: diphenhydrAMINE 50 MG CAP PO PRN ×2 (22:37→22:42)
[2022-02-08] MEDS: IBUPROFEN 600 MG TAB PO PRN ×3 (01:31→19:55)
[2022-02-08] MEDS: ACETAMINOPHEN TAB 325 MG TAB PO PRN ×3 (04:13→23:01)
[2022-02-08] MEDS: SENNOSIDES-DOCUSATE SODIUM 1 EACH TAB PO SCH ×2 (06:23→19:52)
[2022-02-08 07:31] LABS: Basophils # (A) 0.1 k/uL (0-0.2); Basophils % (A) 1 %; Eosinophils # (A) 0.1 k/uL (0-0.7); Eosinophils % (A) 1 %; HCT 25.2 % (34.0-46.0); Hypochromasia Moderate; Lymphocytes # (A) 2.1 k/uL (1.0-4.8); Lymphocytes % (A) 24 %; MCH 25.1 pg (25.0-35.0); MCHC 32.3 g/dL (31.0-37.0); MCV 77.9 fL (80.0-100.0); Mean Platelet Volume 12.9; Monocytes # (A) 0.3 k/uL (0-1.0); Monocytes % (A) 4 %; Neutrophils # (A) 5.9 k/uL (1.3-7.7); Neutrophils % (A) 69 %; Platelet Count 167 k/uL (150-450); RBC 3.24 m/uL (3.80-5.40); RDW 14.5 % (11.5-15.5); WBC 8.6 k/uL (3.8-10.6)
[2022-02-08 07:34] LABS: HGB 8.1 gm/dL (11.4-16.0)
[2022-02-08 07:39] LABS: ALT 89 U/L (4-34); AST 115 U/L (14-36)
--- NOTE | 2022-02-08 11:21 | P.PNOBGVD ---
Subjective - Subjective Principal diagnosis: Status post vaginal delivery day 1 Interval history: Patient did have some nausea and vomiting last night. She denies any this morning. She does complain of cramping like menstrual cramps. She is taking ibuprofen and Tylenol alternating but it does not always seem to cut the pain. She did have a bowel movement this morning. She has been using a warm blanket on her lower abdomen. Bleeding has been minimal. She is bottle feeding. Baby is under bili lights. Patient reports: Reports appetite normal, Reports voiding normally, Reports pain poorly controlled, Reports ambulating normally Steinauer: bottle feeding Objective - Latest Vital Signs Latest vital signs: Vital Signs Temp Pulse Resp BP 02/08/22 08:00 97.8 F 64 16 147/91 02/08/22 04:00 97.3 F L 63 16 126/70 02/08/22 00:00 97.8 F 89 16 120/77 02/07/22 20:00 97.7 F 96 16 133/85 02/07/22 15:25 98.1 F 73 16 145/88 02/07/22 11:58 97.7 F 74 16 135/81 - Exam Extremities: Present: normal. Absent: tenderness Abdomen: Present: normal appearance, soft. Absent: distention, tenderness Uterus: Present: normal, firm. Absent: tenderness - Labs Labs: Abnormal Lab Results - Last 24 Hours (Table) 02/08/22 02/08/22 Range/Units 07:03 07:03 RBC 3.24 L (3.80-5.40) m/uL Hgb 8.1 L D (11.4-16.0) gm/dL Hct 25.2 L (34.0-46.0) % MCV 77.9 L (80.0-100.0) fL AST 115 H (14-36) U/L ALT 89 H (4-34) U/L Assessment and Plan Assessment: Status post vaginal delivery day #1 Occasional mildly elevated blood pressure (1) 38 weeks gestation of Current Visit: Yes Status: Acute Code(s): Z3A.38 - 38 WEEKS GESTATION OF SNOMED Code(s): 53792421 Plan: We'll continue to monitor until tomorrow. If blood pressures do go into the severe range, will start magnesium and/or antihypertensives. Patient does not want to take anything narcotic. Will continue with ibuprofen and Tylenol. Warm blanket as needed. Patient can take Pepcid if needed.
[2022-02-08] MEDS: FAMOTIDINE 20 MG TAB PO PRN (17:25)
[2022-02-08] MEDS: diphenhydrAMINE 50 MG CAP PO PRN (23:01)
[2022-02-09] MEDS: IBUPROFEN 600 MG TAB PO PRN (01:51)
[2022-02-09] MEDS: ACETAMINOPHEN TAB 325 MG TAB PO PRN (06:10)
[2022-02-09] MEDS: SENNOSIDES-DOCUSATE SODIUM 1 EACH TAB PO SCH (06:12)
[2022-02-09 06:17] LABS: HCT 24.5 % (34.0-46.0); HGB 7.8 gm/dL (11.4-16.0); Hypochromasia Moderate; MCH 25.1 pg (25.0-35.0); MCV 78.3 fL (80.0-100.0); Mean Platelet Volume 13.1; Platelet Count 172 k/uL (150-450); RBC 3.13 m/uL (3.80-5.40); RDW 14.6 % (11.5-15.5); WBC 8.8 k/uL (3.8-10.6)
[2022-02-09 06:31] LABS: ALT 78 U/L (4-34); AST 81 U/L (14-36)
[2022-02-09 07:39] VITALS: BP 149/82; PULSE 59; TEMP 97.6
[2022-02-09] MEDS ORDERED: IBUPROFEN 800 MG TAB PO PRN (08:09)
--- NOTE | 2022-02-09 08:12 | P.DS ---
Providers Date of admission: 02/06/22 21:04 Expected date of discharge: 02/09/22 Attending physician: Moriah Armas Primary care physician: Stated None - Discharge Diagnosis(es) (1) 38 weeks gestation of Current Visit: Yes Status: Acute Hospital Course: This is a 26-year-old female 2 para 1 at 39-0/7 weeks who presented with spontaneous rupture membranes. She delivered vaginally a viable male infant on 02/07/2022 with scores of 8 at 1 minute and 9 at 5 minutes and weight of 6 pounds 9.3 ounces. Her hospital course was, it a by some elevated blood pressures. Preeclamptic workup did show elevated liver enzymes and an elevated PC ratio however blood pressures did for the most part normalized after delivery. She does have a history of chronic nausea and vomiting and her liver enzymes did improve by day #2. Her nausea and vomiting has also improved. She denies any headaches or blurry vision. She has had an occasional isolated elevated blood pressure since delivery but most of her blood pressures have been within normal range. She does complain of cramping that the ibuprofen 600 is in not completely taking away. She would like to try ibuprofen 800 mg. She does have a blood pressure cuff at home and will check blood pressures at home. Vital signs are stable other than isolated elevated blood pressures. Abdomen is soft with fundus firm and nontender. Extremities show negative Homans. Impression is status post vaginal delivery day #2. Plan is to discharge home today. Routine instructions are given. She is advised to follow up in the office in 6 weeks for check. She is advised to call the office if has any further questions or concerns prior to her bleeding time or if her blood pressures are staying elevated. She will be given a prescription for ibuprofen 800 mg every 8 hours as needed and will continue to take Tylenol in addition for cramping. Procedures: Spontaneous vaginal delivery of a viable male on 02/07/2022 Patient Condition at Discharge: Stable Plan - Discharge Summary New Discharge Prescriptions: New Ibuprofen [Motrin] 800 mg PO TID PRN #30 tab PRN Reason: Pain Acetaminophen Tab [Tylenol] 650 mg PO Q4HR PRN tab PRN Reason: Mild Pain Or Fever >= 100.5 Continue Famotidine [Pepcid] 20 mg PO BID PRN #20 tablet PRN Reason: Pain Discharge Medication List Famotidine [Pepcid] 20 mg PO BID PRN #20 tablet 09/21/21 [Rx] Acetaminophen Tab [Tylenol] 650 mg PO Q4HR PRN tab 02/09/22 [Rx] Ibuprofen [Motrin] 800 mg PO TID PRN #30 tab 02/09/22 [Rx] Follow up Appointment(s)/Referral(s): Moriah Armas DO [Doctor of Osteopathic Medicine] - 6 Weeks Activity/Diet/Wound Care/Special Instructions: Instructions 1. Do not begin any exercise program for 3 weeks. 2. Do not resume sexual relations for 3 weeks or longer if uncomfortable. 3. You may take tub baths or showers at any time. 4. You may use tampons if desired after 3 weeks. 5. Keep the area of episiotomy (stitches) clean and dry. 6. If you are not nursing, wear a good fitting, supportive bra during the day and limit fluid intake for at least 1 week to prevent breast engorgement. 7. Call the office, [phone], within the next week to make appointment for your 6 week checkup if it has not already been made. 8. Report any of the following occurrences to the doctor promptly: a. Heavy, excessive bleeding b. Chills, fever c. Burning or frequency of urination d. Pain or redness and breasts if nursing e. Increasing pain or swelling in episiotomy (stitches). In addition to the above instructions, the following additional should be followed: 1. No heavy lifting or straining (exercising) until after 6 week checkup. 2. Keep abdominal incision clean and dry: You may wear a dressing if more comfortable. 3. Make office appointment for 10 days after going home or as instructed by her doctor. Discharge Disposition: HOME SELF-CARE
== END 2022-02-09 12:30 | disposition home or self-care (01) | DRG 806 ==
LOC: FBPOP 20:41 → 4FBP 21:04
PROVIDERS: ADMIT Obstetrics & Gynecology; ATTEND Obstetrics & Gynecology
PROC: 4A0HXCZ Measurement of Products of Conception, Cardiac Rate, External Approach (ICD-10-PCS; principal; 2022-02-07)
PROC: 10E0XZZ Delivery of Products of Conception, External Approach (ICD-10-PCS; principal; 2022-02-07)
PROC: 0W8NXZZ Division of Female Perineum, External Approach (ICD-10-PCS; principal; 2022-02-07)
PROC: 3E033VJ Introduction of Other Hormone into Peripheral Vein, Percutaneous Approach (ICD-10-PCS; principal; 2022-02-07)
DX: O42.92 Full-term premature rupture of membranes, unspecified as to length of time between rupture and onset of labor (principal); O98.12 Syphilis complicating childbirth; Z37.0 Single live birth; O98.22 Gonorrhea complicating childbirth; O98.82 Other maternal infectious and parasitic diseases complicating childbirth; O99.324 Drug use complicating childbirth; O99.824 Streptococcus B carrier state complicating childbirth; O69.81X0 Labor and delivery complicated by cord around neck, without compression, not applicable or unspecified; O76 Abnormality in fetal heart rate and rhythm complicating labor and delivery; O99.334 Smoking (tobacco) complicating childbirth; F12.90 Cannabis use, unspecified, uncomplicated; O21.0 Mild hyperemesis gravidarum; F17.290 Nicotine dependence, other tobacco product, uncomplicated; A56.8 Sexually transmitted chlamydial infection of other sites; O26.893 Other specified pregnancy related conditions, third trimester; Z3A.38 38 weeks gestation of pregnancy; Z88.8 Allergy status to other drugs, medicaments and biological substances; Z88.1 Allergy status to other antibiotic agents; R03.0 Elevated blood-pressure reading, without diagnosis of hypertension
CPT/HCPCS: 59025; 80306; 81001; 82565; 82570; 83615; 83735; 84112; 84156; 84450; 84460; 84520; 84550; 85025; 85027; 85384; 85610; 85730; 86850; 86900; 86901; 88307; 90707; 99213

== ENCOUNTER 2022-04-09 09:25 | Day surgery (SDC) | payer OTHER ==
[2022-04-06 10:10] VITALS: BMI 23.5
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
[~2022-04-09 09:25] MED LIST: MIDAZOLAM 2 MG/2 ML VIAL IV PRN; Pre Op ABX Message 1 EACH MISC MISCELLANE ONE; SCOPOLAMINE 1 MG/72 HR PATCH TRANSDERM ONE
[2022-04-09] MEDS: LACTATED RINGERS 1,000 ML IV SCH ×2 (10:21→10:28)
[2022-04-09] MEDS: DEXAMETHASONE SOD PHOSPHATE 4 MG/ML 1 ML VIAL IV ONE ×2 (10:22→10:28)
[2022-04-09] MEDS: ONDANSETRON 4 MG/2 ML VIAL IVP ONE ×2 (10:22→10:28)
[2022-04-09] MEDS ORDERED: NEOSTIGMINE 1 MG/ML 10 ML VIAL ONE (11:31)
[2022-04-09] MEDS ORDERED: GLYCOPYRROLATE 0.2 MG/ML 2 ML VIAL ONE (11:31)
[2022-04-09] MEDS ORDERED: fentaNYL (PF) 50 MCG/ML 2 ML AMP ONE (11:31)
[2022-04-09] MEDS ORDERED: ROCURONIUM 10 MG/ML (5 ML VIAL) IV ONE (11:31)
[2022-04-09] MEDS ORDERED: MIDAZOLAM 2 MG/2 ML VIAL ONE (11:31)
[2022-04-09] MEDS ORDERED: LIDOCAINE 2% INJ 20 MG/ML (2 ML VIAL) ONE (11:31)
[2022-04-09] MEDS ORDERED: PROPOFOL 10 MG/ML 20 ML VIAL IV ONE (11:31)
[2022-04-09] MEDS ORDERED: KETOROLAC 15 MG/ML 1 ML VIAL ONE (11:31)
[2022-04-09] MEDS ORDERED: HYDROmorphone (PF) 1 MG/ML ONE (11:31)
[2022-04-09] MEDS ORDERED: SUCCINYLCHOLINE CHLORIDE 200 MG/10 ML VIAL IV ONE (11:31)
[2022-04-09] MEDS ORDERED: BUPIVACAINE (PF) 0.25% 30 ML VIAL SQ ONE ×2 (11:51→12:02)
--- NOTE | 2022-04-09 12:10 | P.OP ---
Date of Procedure: 04/09/22 Preoperative Diagnosis: Family planning Postoperative Diagnosis: Same Procedure(s) Performed: Laparoscopic bilateral tubal ligation via fulguration Anesthesia: ZOE Surgeon: Moriah Armas Estimated Blood Loss (ml): 5 Pathology: none sent Condition: stable Disposition: same day Indications for Procedure: This is a 26 y.o. female, 2, para 2, who presents for laparoscopic bilateral tubal ligation via fulgaration for family planning. She recently delivered her last child and wishes permanent sterilization. Operative Findings: Uterus is anteverted with a slightly flattened fundal region, sounded to 8 cm. Normal tubes and ovaries are noted. Appendix is visualized and appears normal. Description of Procedure: The patient is taken to the operating room where she is placed in the dorsal lithotomy position. She is prepped and draped in the normal sterile fashion. Examination is performed under anesthesia. Uterus is found to be in a anteverted position. No adnexal masses were palpated. Next a bivalve speculum was placed in the patient's vagina. An Allis clamp was used to grasp the anterior lip of the cervix. The uterus was sounded to 8 cm. The kroner uterine manipulator was then inserted through the cervix and the balloon was inflated. The Allis clamp is removed, speculum is removed, and gloves are changed and attention is turned to the abdomen. A small stab incision was made with a scalpel in the infraumbilical fold. A 5 mm disposable bladeless trocar was then inserted into the peritoneal cavity under direct visualization. Once inside, pneumoperitoneum was achieved with CO2 gas. The insert was removed and the camera was placed. Intraperitoneal placement was confirmed. No bleeding was noted. Next the patient was placed in Trendelenburg position. A small stab incision was made suprapubically and a 5 mm disposable bladeless trocar was inserted into the peritoneal cavity under direct visualization. Once inside pelvic contents were inspected. Next a bipolar Kleppinger instrument was placed through the inferior trocar and the midportion of each tube was brought away from other structures and completely fulgurated on approximate 2-3 cm segment of each tube. Excellent hemostasis was noted. Pictures were taken. Pneumoperitoneum was released after the inferior trocar was removed under direct visualization. The upper trocar was then removed. The skin incisions were then closed with 4-0 Vicryl suture in a subcuticular fashion. Incisions were then injected with quarter percent Marcaine. Approximately 7 mL were used. Next the kroner uterine manipulator was removed. Minimal bleeding was noted. All sponge and needle counts are correct. The patient is then taken to recovery room in stable condition.
[2022-04-09 12:24] VITALS: TEMP 97
[2022-04-09] MEDS: HYDROmorphone 0.5 MG/0.5 ML SYRINGE IVP PRN ×2 (12:29→12:47)
[2022-04-09] MEDS ORDERED: LACTATED RINGERS 1,000 ML IV ONE (13:05)
[2022-04-09 13:36] VITALS: RESP 16
[2022-04-09 13:54] VITALS: BP 128/81; PULSE 67
== END 2022-04-09 14:24 | disposition home or self-care (01) ==
LOC: OR 09:25
PROVIDERS: ATTEND Obstetrics & Gynecology
DX: Z30.2 Encounter for sterilization (principal); F17.200 Nicotine dependence, unspecified, uncomplicated; F10.90 Alcohol use, unspecified, uncomplicated; F12.90 Cannabis use, unspecified, uncomplicated; Z88.1 Allergy status to other antibiotic agents; Z88.9 Allergy status to unspecified drugs, medicaments and biological substances; Z98.890 Other specified postprocedural states
CPT/HCPCS: 58670; 81025; J2250; J0330; J1100; J2710; J2405; J3010; J1170 ×2; J1885; J2704; J2001

== ENCOUNTER 2023-06-21 12:32 | Emergency (ER) | payer OTHER, MEDICAID ==
--- NOTE | 2023-06-21 13:10 | ED ---
URI HPI - General Chief Complaint: Upper Respiratory Infection Stated Complaint: Congestion/Ear pain Time Seen by Provider: 06/21/23 12:36 Source: patient, RN notes reviewed Mode of arrival: ambulatory Limitations: no limitations - History of Present Illness Initial Comments: 28-year-old female presents emergency department chief plaint cough and congest ion. Patient states she has been sick for 2 weeks. She states it is worsening to her chest she has a productive cough, wheezing she denies any history of asthma or COPD denies any sick contacts complains of fullness in her ears denies sore throat, headache or dizziness denies any body aches. - Related Data Previous Rx's Medication Instructions Recorded Thiamine [Vitamin B-1] 100 mg PO DAILY tab 04/23/22 DULoxetine HCL [Cymbalta] 60 mg PO DAILY 30 Days #30 cap 04/27/22 Mirtazapine [Remeron] 15 mg PO HS 30 Days #30 tab 04/27/22 Multivitamins, Thera [Multivitamin 1 each PO DAILY tab 04/27/22 (formulary)] Naltrexone Microspheres [Vivitrol] 380 mg IM ONCE #1 each 04/27/22 Nicotine 14Mg/24Hr Patch [Habitrol] 1 patch TRANSDERM DAILY 14 Days 04/27/22 #14 patch Thiamine [Vitamin B-1] 100 mg PO DAILY tab 04/27/22 hydrOXYzine pamoate [Vistaril] 50 mg PO DAILY PRN 30 Days #60 cap 04/27/22 Albuterol Inhaler [Ventolin Hfa 1 - 2 puff INHALATION Q6H PRN #1 06/21/23 Inhaler] each Amoxic-Pot Clav 875-125Mg 1 tab PO Q12HR #20 tab 06/21/23 [Augmentin 875-125] predniSONE 50 mg PO DAILY #5 tab 06/21/23 Allergies Allergy/AdvReac Type Severity Reaction Status Date / Time cephalexin [From Keflex] Allergy Swelling Verified 06/21/23 12:36 vortioxetine Allergy Swelling Verified 06/21/23 12:36 [From Trintellix] Review of Systems ROS Statement: Those systems with pertinent positive or pertinent negative responses have been documented in the HPI. ROS Other: All systems not noted in ROS Statement are negative. Past Medical History Past Medical History: No Reported History Additional Past Medical History / Comment(s): Chronic nausea and vomiting throughout her -RESOLVED NOW. post pardum 3months History of Any Multi-Drug Resistant Organisms: None Reported Past Surgical History: No Surgical Hx Reported Past Anesthesia/Blood Transfusion Reactions: No Reported Reaction Past Psychological History: No Psychological Hx Reported Smoking Status: Vaper Past Alcohol Use History: Abuse, Occasional Past Drug Use History: Marijuana - Past Family History Mother Family Medical History: No Reported History General Exam Limitations: no limitations General appearance: alert, in no apparent distress Head exam: Present: atraumatic, normocephalic, normal inspection Eye exam: Present: normal appearance, PERRL, EOMI. Absent: scleral icterus, conjunctival injection, periorbital swelling ENT exam: Present: normal exam, normal oropharynx, mucous membranes moist Neck exam: Present: normal inspection, full ROM. Absent: tenderness, meningismus, lymphadenopathy Respiratory exam: Present: wheezes. Absent: normal lung sounds bilaterally, respiratory distress, rales, rhonchi, stridor Cardiovascular Exam: Present: normal rhythm, tachycardia, normal heart sounds. Absent: systolic murmur, diastolic murmur, rubs, gallop, clicks GI/Abdominal exam: Present: soft, normal bowel sounds. Absent: distended, tenderness, guarding, rebound, rigid Course Vital Signs 06/21/23 06/21/23 06/21/23 12:33 13:16 13:35 Temperature 98.2 F Pulse Rate 112 H 88 Respiratory 20 12 16 Rate Blood Pressure 133/84 O2 Sat by Pulse 99 Oximetry 06/21/23 06/21/23 13:41 14:07 Temperature 98.1 F Pulse Rate 88 112 H Respiratory 18 12 Rate Blood Pressure 143/93 O2 Sat by Pulse 100 Oximetry Medical Decision Making - Medical Decision Making Was pt. sent in by a medical professional or institution (, PA, WORK CHECKER, urgent care, hospital, or fpc...) When possible be specific @ -No Did you speak to anyone other than the patient for history (EMS, parent, family, police, friend...)? What history was obtained from this source @ -No Did you review nursing and triage notes (agree or disagree)? Why? @ -I reviewed and agree with nursing and triage notes Were old charts reviewed (outside hosp., previous admission, EMS record, old EKG, old radiological studies, urgent care reports/EKG's, fpc records)? Report findings @ -No old charts were reviewed Differential Diagnosis (chest pain, altered mental status, abdominal pain women, abdominal pain men, vaginal bleeding, weakness, fever, dyspnea, syncope, headache, dizziness, GI bleed, back pain, seizure, CVA, palpatations, mental health, musculoskeletal)? @ -COVID 19, RSV, influenza, pneumonia, acute bronchitis, URI, this list is not all inclusive EKG interpreted by me (3pts min.). @ -None X-rays interpreted by me (1pt min.). @ -X-ray chest shows no evidence of infiltrate CT interpreted by me (1pt min.). @ -None done U/S interpreted by me (1pt. min.). @ -None done What testing was considered but not performed or refused? (CT, X-rays, U/S, labs)? Why? @ -None What meds were considered but not given or refused? Why? @ -None Did you discuss the management of the patient with other professionals (professionals i.e. , PA, WORK CHECKER, lab, RT, psych nurse, social media coordinator, milk runner, teacher, crime prevention police officer, case investigator)? Give summary @ -No Was smoking cessation discussed for >3mins.? @ -No Was critical care preformed (if so, how long)? @ -No Were there social determinants of health that impacted care today? How? (Homelessness, low income, unemployed, alcoholism, drug addiction, transportation, low edu. Level, literacy, decrease access to med. care, correction, rehab)? @ -No Was there de-escalation of care discussed even if they declined (Discuss DNR or withdrawal of care, Hospice)? DNR status @ -No What co-morbidities impacted this encounter? (DM, HTN, Smoking, COPD, CAD, Cancer, CVA, ARF, Chemo, Hep., AIDS, mental health diagnosis, sleep apnea, morbid obesity)? @ -None Was patient admitted / discharged? Hospital course, mention meds given and route, prescriptions, significant lab abnormalities, going to OR and other pertinent info. @ -Discharge patient presented for URI symptoms patient did have notable bronchospasms improved after DuoNeb treatment patient be treated for tracheobronchitis return for as discussed. Undiagnosed new problem with uncertain prognosis? @ -No Drug Therapy requiring intensive monitoring for toxicity (Heparin, Nitro, Insulin, Cardizem)? @ -No Were any procedures done? @ -No Diagnosis/symptom? @ -Tracheobronchitis Acute, or Chronic, or Acute on Chronic? @ -Acute Uncomplicated (without systemic symptoms) or Complicated (systemic symptoms)? @ -uncomplicated Side effects of treatment? @ -No Exacerbation, Progression, or Severe Exacerbation? @ -No Poses a threat to life or bodily function? How? (Chest pain, [place], [place], pneumonia, PE, COPD, DKA, ARF, appy, cholecystitis, CVA, Diverticulitis, Homicidal, Suicidal, threat to staff... and all critical care pts) @ -No Disposition Clinical Impression: Tracheobronchitis, Bronchospasm Disposition: HOME SELF-CARE Condition: Stable Instructions (If sedation given, give patient instructions): Bronchospasm (ED) Additional Instructions: Please return to the Emergency Department if symptoms worsen or any other concerns. Prescriptions: Amoxic-Pot Clav 875-125Mg [Augmentin 875-125] 1 tab PO Q12HR #20 tab predniSONE 50 mg PO DAILY #5 tab Albuterol Inhaler [Ventolin Hfa Inhaler] 1 - 2 puff INHALATION Q6H PRN #1 each PRN Reason: Shortness Of Breath Is patient prescribed a controlled substance at d/c from ED?: No Referrals: None,Stated [Primary Care Provider] - 1-2 days Time of Disposition: 14:03
[2023-06-21] MEDS: IPRATROPIUM-ALBUTEROL 3 ML NEB INHALATION STA (13:35)
--- NOTE | 2023-06-21 13:35 | XR ---
EXAMINATION TYPE: XR chest 2V DATE OF EXAM: 06/21/2023 COMPARISON: NONE HISTORY: Chest pain TECHNIQUE: Frontal and lateral views of the chest are obtained. FINDINGS: There is no focal air space opacity. No evidence for pneumothorax. No pleural effusion. The cardiac silhouette size is within normal limits. The osseous structures are grossly intact. IMPRESSION: 1. No acute cardiopulmonary process.
[2023-06-21 14:27] VITALS: BP 143/93; PULSE 112; RESP 12; TEMP 98.1
== END 2023-06-21 14:09 | disposition home or self-care (01) ==
LOC: EC 12:32
DX: J40 Bronchitis, not specified as acute or chronic (principal); J98.01 Acute bronchospasm; R00.0 Tachycardia, unspecified; F17.290 Nicotine dependence, other tobacco product, uncomplicated; Z88.1 Allergy status to other antibiotic agents; Z88.8 Allergy status to other drugs, medicaments and biological substances
CPT/HCPCS: 71046; 94640; 99283

== ENCOUNTER 2023-08-17 09:33 | Emergency (ER) | payer MEDICAID, OTHER ==
[2023-08-17 09:47] VITALS: BP 139/99; PULSE 68; RESP 18; TEMP 97.9
--- NOTE | 2023-08-17 11:03 | ED ---
General Adult HPI - General Chief complaint: Recheck/Abnormal Lab/Rx Stated complaint: poss covid Time Seen by Provider: 08/17/23 09:49 Source: patient, RN notes reviewed Mode of arrival: ambulatory Limitations: no limitations - History of Present Illness Initial comments: This is a 28-year-old female presents emergency department chief complaint of a COVID exposure. 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 Currently mom states that she is experiencing a dry cough and mild runny nose. She denies fevers, body aches, chills. Patient is up-to-date on vaccines. No other acute complaints at this time. - Related Data Previous Rx's Medication Instructions Recorded Thiamine [Vitamin B-1] 100 mg PO DAILY tab 04/23/22 DULoxetine HCL [Cymbalta] 60 mg PO DAILY 30 Days #30 cap 04/27/22 Mirtazapine [Remeron] 15 mg PO HS 30 Days #30 tab 04/27/22 Multivitamins, Thera [Multivitamin 1 each PO DAILY tab 04/27/22 (formulary)] Naltrexone Microspheres [Vivitrol] 380 mg IM ONCE #1 each 04/27/22 Nicotine 14Mg/24Hr Patch [Habitrol] 1 patch TRANSDERM DAILY 14 Days 04/27/22 #14 patch Thiamine [Vitamin B-1] 100 mg PO DAILY tab 04/27/22 hydrOXYzine pamoate [Vistaril] 50 mg PO DAILY PRN 30 Days #60 cap 04/27/22 Albuterol Inhaler [Ventolin Hfa 1 - 2 puff INHALATION Q6H PRN #1 06/21/23 Inhaler] each Amoxic-Pot Clav 875-125Mg 1 tab PO Q12HR #20 tab 06/21/23 [Augmentin 875-125] predniSONE 50 mg PO DAILY #5 tab 06/21/23 Nirmatrelvir/Ritonavir [Paxlovid 1 each PO DAILY #1 each 08/17/23 300-100 mg Dose Pack] Allergies Allergy/AdvReac Type Severity Reaction Status Date / Time cephalexin [From Keflex] Allergy Swelling Verified 08/17/23 09:47 vortioxetine Allergy Swelling Verified 08/17/23 09:47 [From Trintellix] Review of Systems ROS Statement: Those systems with pertinent positive or pertinent negative responses have been documented in the HPI. ROS Other: All systems not noted in ROS Statement are negative. Past Medical History Past Medical History: No Reported History Additional Past Medical History / Comment(s): Chronic nausea and vomiting throughout her -RESOLVED NOW. post pardum 3months History of Any Multi-Drug Resistant Organisms: None Reported Past Surgical History: No Surgical Hx Reported Past Anesthesia/Blood Transfusion Reactions: No Reported Reaction Past Psychological History: No Psychological Hx Reported Smoking Status: Vaper Past Alcohol Use History: Abuse, Occasional Past Drug Use History: Marijuana - Past Family History Mother Family Medical History: No Reported History General Exam Limitations: no limitations General appearance: alert, in no apparent distress Head exam: Present: atraumatic, normocephalic, normal inspection Eye exam: Present: normal appearance, PERRL, EOMI. Absent: scleral icterus, conjunctival injection, periorbital swelling ENT exam: Present: normal exam, mucous membranes moist Neck exam: Present: normal inspection. Absent: tenderness, meningismus, lymphadenopathy Respiratory exam: Present: normal lung sounds bilaterally. Absent: respiratory distress, wheezes, rales, rhonchi, stridor Cardiovascular Exam: Present: regular rate, normal rhythm, normal heart sounds. Absent: systolic murmur, diastolic murmur, rubs, gallop, clicks GI/Abdominal exam: Present: soft, normal bowel sounds. Absent: distended, tenderness, guarding, rebound, rigid Extremities exam: Present: normal inspection, full ROM, normal capillary refill. Absent: tenderness, pedal edema, joint swelling, calf tenderness Back exam: Present: normal inspection Neurological exam: Present: alert, oriented X3, CN II-XII intact Psychiatric exam: Present: normal affect, normal mood Skin exam: Present: warm, dry, intact, normal color. Absent: rash Course Vital Signs 08/17/23 09:44 Temperature 97.9 F Pulse Rate 68 Respiratory 18 Rate Blood Pressure 139/99 O2 Sat by Pulse 98 Oximetry Medical Decision Making - Medical Decision Making Was pt. sent in by a medical professional or institution (, PA, SEAFOOD PROCESS WORKER, urgent care, hospital, or penitentiary...) When possible be specific @ -No Did you speak to anyone other than the patient for history (EMS, parent, family, police, friend...)? What history was obtained from this source @ -No Did you review nursing and triage notes (agree or disagree)? Why? @ -I reviewed and agree with nursing and triage notes Were old charts reviewed (outside hosp., previous admission, EMS record, old EKG, old radiological studies, urgent care reports/EKG's, penitentiary records)? Report findings @ -No old charts were reviewed Differential Diagnosis (chest pain, altered mental status, abdominal pain women, abdominal pain men, vaginal bleeding, weakness, fever, dyspnea, syncope, headache, dizziness, GI bleed, back pain, seizure, CVA, palpatations, mental health, musculoskeletal)? @ -COVID 19, RSV, influenza, pneumonia, acute bronchitis, URI, this list is not all inclusive EKG interpreted by me (3pts min.). @ -None X-rays interpreted by me (1pt min.). @ -None done CT interpreted by me (1pt min.). @ -None done U/S interpreted by me (1pt. min.). @ -None done What testing was considered but not performed or refused? (CT, X-rays, U/S, labs)? Why? @ -X-ray was considered but deferred at this time due to patient having a mild dry cough with no acute findings on auscultation of bilateral lung marshall. What meds were considered but not given or refused? Why? @ -None Did you discuss the management of the patient with other professionals (professionals i.e. , PA, SEAFOOD PROCESS WORKER, lab, RT, psych nurse, social science research assistant, early childhood aide classroom, teacher, sheriff officer, disease case manager rn)? Give summary @ -No Was smoking cessation discussed for >3mins.? @ -No Was critical care preformed (if so, how long)? @ -No Were there social determinants of health that impacted care today? How? (Homelessness, low income, unemployed, alcoholism, drug addiction, transportation, low edu. Level, literacy, decrease access to med. care, nursing home, rehab)? @ -No Was there de-escalation of care discussed even if they declined (Discuss DNR or withdrawal of care, Hospice)? DNR status @ -No What co-morbidities impacted this encounter? (DM, HTN, Smoking, COPD, CAD, Cancer, CVA, ARF, Chemo, Hep., AIDS, mental health diagnosis, sleep apnea, morbid obesity)? @ -None Was patient admitted / discharged? Hospital course, mention meds given and route, prescriptions, significant lab abnormalities, going to OR and other pertinent info. @ -Urged. 28-year-old female with a COVID exposure. On examination there are no acute findings. Additionally patient has tested positive for COVID. Due to patient expressing mild symptoms with exposure yesterday she is a candidate for Paxlovid. Patient would like to take antiviral medication, prescription sent to pharmacy. Continue to cycle Tylenol Motrin as needed for symptomatic relief. Increase oral rehydration. Additionally patient was provided with a work note. Discussion with patient that if symptoms have resolved and she is fever free for 24 hours she is able to resume normal activities. Case discussed with my attending Dr. Ramirez Undiagnosed new problem with uncertain prognosis? @ -No Drug Therapy requiring intensive monitoring for toxicity (Heparin, Nitro, Insulin, Cardizem)? @ -No Were any procedures done? @ -No Diagnosis/symptom? @ [id number] Acute, or Chronic, or Acute on Chronic? @ -Acute Uncomplicated (without systemic symptoms) or Complicated (systemic symptoms)? @ -Uncomplicated Side effects of treatment? @ -No Exacerbation, Progression, or Severe Exacerbation? @ -No Poses a threat to life or bodily function? How? (Chest pain, [place], [place], pneumonia, PE, COPD, DKA, ARF, appy, cholecystitis, CVA, Diverticulitis, Homicidal, Suicidal, threat to staff... and all critical care pts) @ -No - Lab Data Lab Results 08/17/23 Range/Units 09:52 Influenza Type A (PCR) Not Detected (Not Detectd) Influenza Type B (PCR) Not Detected (Not Detectd) RSV (PCR) Not Detected (Not Detectd) SARS-CoV-2 (PCR) Detected A (Not Detectd) Disposition Clinical Impression: COVID-19 Disposition: HOME SELF-CARE Condition: Good Instructions (If sedation given, give patient instructions): COVID-19 (Coronavirus Disease 2019) (ED) Additional Instructions: Return to the emergency department symptoms worsen or not improve. Continue to cycle Tylenol Motrin at home for symptomatic relief. Complete full course of antibiotics as prescribed. Prescriptions: Nirmatrelvir/Ritonavir [Paxlovid 300-100 mg Dose Pack] 1 each PO DAILY #1 each Is patient prescribed a controlled substance at d/c from ED?: No Referrals: None,Stated [Primary Care Provider] - 1-2 days Time of Disposition: 11:02
== END 2023-08-17 11:07 | disposition home or self-care (01) ==
LOC: EC 09:33
DX: U07.1 COVID-19 (principal); F17.290 Nicotine dependence, other tobacco product, uncomplicated; F12.90 Cannabis use, unspecified, uncomplicated; Z88.1 Allergy status to other antibiotic agents; Z88.8 Allergy status to other drugs, medicaments and biological substances
CPT/HCPCS: 87636; 99283

== ENCOUNTER 2023-11-23 11:09 | Emergency (ER) | payer OTHER ==
[2023-11-23 11:24] VITALS: TEMP 98.3
--- NOTE | 2023-11-23 11:26 | ED ---
URI HPI - General Source: patient, RN notes reviewed Mode of arrival: ambulatory Limitations: no limitations <Juanita Samuel - Last Filed: 11/23/23 11:26> - General Source: patient, RN notes reviewed Mode of arrival: ambulatory Limitations: no limitations <Reji Castillo - Last Filed: 11/23/23 13:05> - General Chief Complaint: Upper Respiratory Infection Stated Complaint: chills Time Seen by Provider: 11/23/23 11:26 - History of Present Illness Initial Comments: Quick note: 28-year-old female presented to the ER with a chief complaint of myalgias and cough. Patient states symptoms started last night. Children have similar symptoms. Patient denies any difficulty breathing or wheezing. (Juanita Samuel) Patient is a 28-year-old female presenting to the emergency department with children with concerns for upper respiratory symptoms. Onset of symptoms was today. Patient does have mild congestion, no significant cough. Patient has had chills and feels warm and cold. No definitive fever. Symptoms are similar to her children. (Reji Castillo) - Related Data Previous Rx's Medication Instructions Recorded Thiamine [Vitamin B-1] 100 mg PO DAILY tab 04/23/22 DULoxetine HCL [Cymbalta] 60 mg PO DAILY 30 Days #30 cap 04/27/22 Mirtazapine [Remeron] 15 mg PO HS 30 Days #30 tab 04/27/22 Multivitamins, Thera [Multivitamin 1 each PO DAILY tab 04/27/22 (formulary)] Naltrexone Microspheres [Vivitrol] 380 mg IM ONCE #1 each 04/27/22 Nicotine 14Mg/24Hr Patch [Habitrol] 1 patch TRANSDERM DAILY 14 Days 04/27/22 #14 patch Thiamine [Vitamin B-1] 100 mg PO DAILY tab 04/27/22 hydrOXYzine pamoate [Vistaril] 50 mg PO DAILY PRN 30 Days #60 cap 04/27/22 Albuterol Inhaler [Ventolin Hfa 1 - 2 puff INHALATION Q6H PRN #1 06/21/23 Inhaler] each Amoxic-Pot Clav 875-125Mg 1 tab PO Q12HR #20 tab 06/21/23 [Augmentin 875-125] predniSONE 50 mg PO DAILY #5 tab 06/21/23 Nirmatrelvir/Ritonavir [Paxlovid 1 each PO DAILY #1 each 08/17/23 300-100 mg Dose Pack] Allergies Allergy/AdvReac Type Severity Reaction Status Date / Time cephalexin [From Keflex] Allergy Swelling Verified 11/23/23 11:24 vortioxetine Allergy Swelling Verified 11/23/23 11:24 [From Trintellix] Review of Systems ROS Other: All systems not noted in ROS Statement are negative. <Juanita Samuel - Last Filed: 11/23/23 11:26> ROS Other: All systems not noted in ROS Statement are negative. Constitutional: Reports: as per HPI, chills Eyes: Denies: eye pain ENT: Reports: congestion. Denies: as per HPI Respiratory: Denies: dyspnea Cardiovascular: Denies: chest pain Gastrointestinal: Denies: abdominal pain, vomiting Musculoskeletal: Denies: back pain <Reji Castillo - Last Filed: 11/23/23 13:05> ROS Statement: Those systems with pertinent positive or pertinent negative responses have been documented in the HPI. Past Medical History Past Medical History: No Reported History Additional Past Medical History / Comment(s): Chronic nausea and vomiting throughout her -RESOLVED NOW. post pardum 3months History of Any Multi-Drug Resistant Organisms: None Reported Past Surgical History: No Surgical Hx Reported Past Anesthesia/Blood Transfusion Reactions: No Reported Reaction Past Psychological History: No Psychological Hx Reported Smoking Status: Vaper Past Alcohol Use History: Abuse, Occasional Past Drug Use History: Marijuana - Past Family History Mother Family Medical History: No Reported History <Juanita Samuel - Last Filed: 11/23/23 11:26> General Exam Limitations: no limitations <Juanita Samuel - Last Filed: 11/23/23 11:26> Limitations: no limitations General appearance: alert, in no apparent distress Head exam: Present: normocephalic Eye exam: Present: normal appearance ENT exam: Present: normal oropharynx Neck exam: Present: normal inspection. Absent: tenderness, meningismus Respiratory exam: Present: normal lung sounds bilaterally. Absent: respiratory distress, wheezes Cardiovascular Exam: Present: regular rate, normal rhythm GI/Abdominal exam: Present: soft. Absent: tenderness Extremities exam: Present: normal inspection Neurological exam: Present: alert Psychiatric exam: Present: normal affect, normal mood Skin exam: Present: normal color <Reji Castillo - Last Filed: 11/23/23 13:05> - General Exam Comments Initial Comments: Visual Physical Exam Vital signs reviewed General: Well-appearing, nontoxic, no acute distress. Head: Normocephalic, atraumatic Eyes: PERRLA, EOMI ENT: Airway patent Chest: Nonlabored breathing Skin: No visual rash, normal skin tone Neuro: Alert and oriented 3 Musculoskeletal: No gross abnormalities (Juanita Samuel) Course Vital Signs 11/23/23 11/23/23 11:22 12:59 Temperature 98.3 F Pulse Rate 111 H 106 H Respiratory 20 18 Rate Blood Pressure 156/109 134/94 O2 Sat by Pulse 98 100 Oximetry Medical Decision Making <Juanita Samuel - Last Filed: 11/23/23 11:26> <Reji Castillo - Last Filed: 11/23/23 13:05> - Medical Decision Making I performed the quick note portion of this chart. Electronically signed by Juanita Samuel PA-C (Juanita Samuel) Was pt. sent in by a medical professional or institution ([email or web address], GAS LEAK INSPECTOR, urgent care, hospital, or snf...) When possible be specific @ -No Did you speak to anyone other than the patient for history (EMS, parent, family, police, friend...)? What history was obtained from this source @ -No Did you review nursing and triage notes (agree or disagree)? Why? @ -I reviewed and agree with nursing and triage notes Were old charts reviewed (outside hosp., previous admission, EMS record, old EKG, old radiological studies, urgent care reports/EKG's, snf records)? Report findings @ -No old charts were reviewed Differential Diagnosis (chest pain, altered mental status, abdominal pain women, abdominal pain men, vaginal bleeding, weakness, fever, dyspnea, syncope, headache, dizziness, GI bleed, back pain, seizure, CVA, palpatations, mental health, musculoskeletal)? @ -Differential Fever: Pneumonia, viral URI, endocarditis, myocarditis, pericarditis, otitis, sinusitis, peritonsillar Abscess, retropharyngeal Abscess, epiglottitis, peritonitis, appendicitis, Jacqueline cystitis, diverticulitis, hepatitis, colitis, UTI, PID, TOA, pyelonephritis, prostatitis, epididymitis, meningitis, encepha litis, pulmonary embolism, CVA, thyroid storm, pancreatitis, adrenal crisis, cavernous sinus thrombosis, this is not meant to be an all-inclusive list. EKG interpreted by me (3pts min.). @ -As above X-rays interpreted by me (1pt min.). @ -None done CT interpreted by me (1pt min.). @ -None done U/S interpreted by me (1pt. min.). @ -None done What testing was considered but not performed or refused? (CT, X-rays, U/S, labs)? Why? @ -Considered x-ray however no fever and lungs are clear What meds were considered but not given or refused? Why? @ -None Did you discuss the management of the patient with other professionals (professionals i.e. , PA, GAS LEAK INSPECTOR, lab, RT, psych nurse, social worker health services, manager business development hospice, teacher, energy control officer, pillowcase cleaner)? Give summary @ -No Was smoking cessation discussed for >3mins.? @ -No Was critical care preformed (if so, how long)? @ -No Were there social determinants of health that impacted care today? How? (Homelessness, low income, unemployed, alcoholism, drug addiction, transportation, low edu. Level, literacy, decrease access to med. care, group home, rehab)? @ -No Was there de-escalation of care discussed even if they declined (Discuss DNR or withdrawal of care, Hospice)? DNR status @ -No What co-morbidities impacted this encounter? (DM, HTN, Smoking, COPD, CAD, Cancer, CVA, ARF, Chemo, Hep., AIDS, mental health diagnosis, sleep apnea, morbid obesity)? @ -None Was patient admitted / discharged? Hospital course, mention meds given and route, prescriptions, significant lab abnormalities, going to OR and other pertinent info. @ -Patient presents with chills and mild congestion. Family members with similar symptoms. Patient is stable and will be discharge Undiagnosed new problem with uncertain prognosis? @ -No Drug Therapy requiring intensive monitoring for toxicity (Heparin, Nitro, Insulin, Cardizem)? @ -No Were any procedures done? @ -No Diagnosis/symptom? @ -Upper respiratory Acute, or Chronic, or Acute on Chronic? @ -Acute Uncomplicated (without systemic symptoms) or Complicated (systemic symptoms)? @ -Default Side effects of treatment? @ -No Exacerbation, Progression, or Severe Exacerbation? @ -No Poses a threat to life or bodily function? How? (Chest pain, [place], [place], pneumonia, PE, COPD, DKA, ARF, appy, cholecystitis, CVA, Diverticulitis, Homicidal, Suicidal, threat to staff... and all critical care pts) @ -No (Reji Castillo) - Lab Data Lab Results 11/23/23 Range/Units 11:29 Influenza Type A (PCR) Not Detected (Not Detectd) Influenza Type B (PCR) Not Detected (Not Detectd) RSV (PCR) Not Detected (Not Detectd) SARS-CoV-2 (PCR) Not Detected (Not Detectd) Disposition <Juanita Samuel - Last Filed: 11/23/23 11:26> Is patient prescribed a controlled substance at d/c from ED?: No Time of Disposition: 13:04 <Reji Castillo - Last Filed: 11/23/23 13:05> Clinical Impression: Upper respiratory tract infection Disposition: HOME SELF-CARE Condition: Stable Instructions (If sedation given, give patient instructions): Upper Respiratory Infection (ED) Additional Instructions: [id number] Tylenol or Motrin as needed. Please follow-up with primary care physician in the next couple days for recheck. Return for difficulty in breathing, uncontrolled fevers, pain, worsening or changing symptoms or other concerns. Referrals: Rafael Carreon MD [STAFF PHYSICIAN] - 1-2 days
[2023-11-23 12:59] VITALS: BP 134/94; PULSE 106; RESP 18
== END 2023-11-23 13:24 | disposition home or self-care (01) ==
LOC: EC 11:09
DX: J06.9 Acute upper respiratory infection, unspecified (principal); F17.290 Nicotine dependence, other tobacco product, uncomplicated; Z88.1 Allergy status to other antibiotic agents; Z88.8 Allergy status to other drugs, medicaments and biological substances
CPT/HCPCS: 87636; 99283

== ENCOUNTER 2023-12-11 10:52 | Emergency (ER) | payer OTHER ==
[2023-12-11 11:21] VITALS: RESP 18
--- NOTE | 2023-12-11 12:27 | XR ---
EXAMINATION TYPE: XR chest 2V DATE OF EXAM: 12/11/2023 COMPARISON: 06/21/2023 HISTORY: Shortness of breath TECHNIQUE: Frontal and lateral views of the chest are obtained. FINDINGS: There is no focal air space opacity, pleural effusion, or pneumothorax seen. The cardiac silhouette size is within normal limits. The osseous structures are intact. IMPRESSION: No acute cardiopulmonary process. [facility], Workstation: [id number] 12/11/2023 12:25 PM
--- NOTE | 2023-12-11 13:23 | ED ---
General Adult HPI - General Chief complaint: Upper Respiratory Infection Stated complaint: Congestion, cough, loss of hearing Time Seen by Provider: 12/11/23 11:22 Source: patient, RN notes reviewed, old records reviewed Mode of arrival: ambulatory Limitations: no limitations - History of Present Illness Initial comments: Patient is a 28-year-old female with no significant past medical history other than vaping who presents emergency department with her son's over concern for upper respiratory infection. Patient was seen recently here as well and diagnosed with viral syndrome as viral swabs were negative. Patient states symptoms have been ongoing for multiple weeks and not improving which is why she presents. States that it seems to be more of a productive cough at this time when before it was mild fever with nasal congestion. Her as well as her sons have similar complaints. She also complains of an ear fullness sensation. De nies current fever, nausea, vomiting, diarrhea. Denies any chest pain or shortness of breath. Denies abdominal pain. Presents for further evaluation. - Related Data Previous Rx's Medication Instructions Recorded Thiamine [Vitamin B-1] 100 mg PO DAILY tab 04/23/22 DULoxetine HCL [Cymbalta] 60 mg PO DAILY 30 Days #30 cap 04/27/22 Mirtazapine [Remeron] 15 mg PO HS 30 Days #30 tab 04/27/22 Multivitamins, Thera [Multivitamin 1 each PO DAILY tab 04/27/22 (formulary)] Naltrexone Microspheres [Vivitrol] 380 mg IM ONCE #1 each 04/27/22 Nicotine 14Mg/24Hr Patch [Habitrol] 1 patch TRANSDERM DAILY 14 Days 04/27/22 #14 patch Thiamine [Vitamin B-1] 100 mg PO DAILY tab 04/27/22 hydrOXYzine pamoate [Vistaril] 50 mg PO DAILY PRN 30 Days #60 cap 04/27/22 Albuterol Inhaler [Ventolin Hfa 1 - 2 puff INHALATION Q6H PRN #1 06/21/23 Inhaler] each Amoxic-Pot Clav 875-125Mg 1 tab PO Q12HR #20 tab 06/21/23 [Augmentin 875-125] predniSONE 50 mg PO DAILY #5 tab 06/21/23 Nirmatrelvir/Ritonavir [Paxlovid 1 each PO DAILY #1 each 08/17/23 300-100 mg Dose Pack] Azithromycin [Zithromax] 250 mg PO DAILY 4 Days #4 tab 12/11/23 Allergies Allergy/AdvReac Type Severity Reaction Status Date / Time cephalexin [From Keflex] Allergy Swelling Verified 12/11/23 11:21 vortioxetine Allergy Swelling Verified 12/11/23 11:21 [From Trintellix] Review of Systems ROS Statement: Those systems with pertinent positive or pertinent negative responses have been documented in the HPI. Review of Systems: CONST: Denies fever EYES: Denies blurry vision ENT: Endorses nasal congestion C/V: Denies Chest pain RESP: Denies shortness of breath GI: Denies abdominal pain : Denies dysuria SKIN: Denies rash. MSK: Denies joint pain. NEURO: Denies headache ROS Other: All systems not noted in ROS Statement are negative. Past Medical History Past Medical History: No Reported History Additional Past Medical History / Comment(s): Chronic nausea and vomiting throughout her -RESOLVED NOW. post pardum 3months History of Any Multi-Drug Resistant Organisms: None Reported Past Surgical History: No Surgical Hx Reported Past Anesthesia/Blood Transfusion Reactions: No Reported Reaction Past Psychological History: No Psychological Hx Reported Smoking Status: Vaper Past Alcohol Use History: Occasional Past Drug Use History: Marijuana - Past Family History Mother Family Medical History: No Reported History General Exam - General Exam Comments Initial Comments: General: Appears in no acute distress. HEAD: Normal with no signs of head trauma. EYES: EOMI. no posterior oropharyngeal erythema. ENT: Hearing grossly intact. Left tympanic membrane normal limits. Small mount of fluid behind the right tympanic membrane. RESPIRATORY: No respiratory distress. No hypoxia. Clear breath sounds bilaterally. C/V: Regular rate and rhythm. ABD: Abdomen is nondistended. EXT: No obvious deformity. SKIN: No rashes or lesions observed on exposed skin. NEURO: Alert and oriented. Limitations: no limitations Course Vital Signs 12/11/23 12/11/23 11:19 14:09 Temperature 97.4 F L 98.9 F Pulse Rate 105 H 100 Respiratory 18 18 Rate Blood Pressure 126/90 120/89 O2 Sat by Pulse 97 99 Oximetry Medical Decision Making - Medical Decision Making Was pt. sent in by a medical professional or institution (, PA, SOLAR SALES AMBASSADOR, urgent care, hospital, or half-way...) When possible be specific @ -No Did you speak to anyone other than the patient for history (EMS, parent, family, police, friend...)? What history was obtained from this source @ -No Did you review nursing and triage notes (agree or disagree)? Why? @ -I reviewed and agree with nursing and triage notes Were old charts reviewed (outside hosp., previous admission, EMS record, old EKG, old radiological studies, urgent care reports/EKG's, half-way records)? Report findings @ -No old charts were reviewed Differential Diagnosis (chest pain, altered mental status, abdominal pain women, abdominal pain men, vaginal bleeding, weakness, fever, dyspnea, syncope, headache, dizziness, GI bleed, back pain, seizure, CVA, palpatations, mental health, musculoskeletal)? @ -COVID, flu, RSV, pneumonia. This is not all inclusive EKG interpreted by me (3pts min.). @ -None done X-rays interpreted by me (1pt min.). @ -Chest x-ray shows no signs of acute cardiopulmonary process or infiltrate. CT interpreted by me (1pt min.). @ -None done U/S interpreted by me (1pt. min.). @ -None done What testing was considered but not performed or refused? (CT, X-rays, U/S, labs)? Why? @ -None What meds were considered but not given or refused? Why? @ -None Did you discuss the management of the patient with other professionals (professionals i.e. , PA, SOLAR SALES AMBASSADOR, lab, RT, psych nurse, social service technician, bear keeper, teacher, commanding officer homicide squad, family caseworker)? Give summary @ -No Was smoking cessation discussed for >3mins.? @ -No Was critical care preformed (if so, how long)? @ -No Were there social determinants of health that impacted care today? How? (Homelessness, low income, unemployed, alcoholism, drug addiction, transportation, low edu. Level, literacy, decrease access to med. care, halfway, rehab)? @ -No Was there de-escalation of care discussed even if they declined (Discuss DNR or withdrawal of care, Hospice)? DNR status @ -No What co-morbidities impacted this encounter? (DM, HTN, Smoking, COPD, CAD, Cancer, CVA, ARF, Chemo, Hep., AIDS, mental health diagnosis, sleep apnea, morbid obesity)? @ -None Was patient admitted / discharged? Hospital course, mention meds given and route, prescriptions, significant lab abnormalities, going to OR and other pertinent info. @ -Based on patient's presentation and physical exam, presents with URI symptoms. Has been seen previously for similar complaints. Has been ongoing for over a week. Fevers have stopped. Positive sick contacts. We will obtain viral swab strep swab as well as chest x-ray. Vitals within acceptable limits. She was in agreement this plan. Workup unremarkable. Discussed results with the patient. She will be discharged home at this time. Started on a Z-Price for tracheobronchitis. I will provide the patient with a prescription for azithromycin. I instructed the patient to follow up with their PCP in the next 1-3 days. . I explained that the patient should return to the emergency department if they experience any worsening symptoms. Strict return precautions were discussed with the patient. The patient expressed understanding of these instructions. I answered all questions that the patient had. The patient was discharged home in good condition with their prescriptions and follow up information. Undiagnosed new problem with uncertain prognosis? @ -No Drug Therapy requiring intensive monitoring for toxicity (Heparin, Nitro, Insulin, Cardizem)? @ -No Were any procedures done? @ -No Diagnosis/symptom? @ -Tracheobronchitis Acute, or Chronic, or Acute on Chronic? @ -Acute Uncomplicated (without systemic symptoms) or Complicated (systemic symptoms)? @ -Uncomplicated Side effects of treatment? @ -No Exacerbation, Progression, or Severe Exacerbation? @ -No Poses a threat to life or bodily function? How? (Chest pain, [place], [place], pneumonia, PE, COPD, DKA, ARF, appy, cholecystitis, CVA, Diverticulitis, Homicidal, Suicidal, threat to staff... and all critical care pts) @ -No - Lab Data Lab Results 12/11/23 12/11/23 Range/Units 11:55 12:06 Influenza Type A (PCR) Not Detected (Not Detectd) Influenza Type B (PCR) Not Detected (Not Detectd) RSV (PCR) Not Detected (Not Detectd) SARS-CoV-2 (PCR) Not Detected (Not Detectd) Group A Strep (PCR) NOT DETECTED (Not Detectd) Disposition Clinical Impression: Tracheobronchitis Disposition: HOME SELF-CARE Condition: Good Instructions (If sedation given, give patient instructions): Acute Bronchitis (ED) Prescriptions: Azithromycin [Zithromax] 250 mg PO DAILY 4 Days #4 tab Is patient prescribed a controlled substance at d/c from ED?: No Referrals: None,Stated [Primary Care Provider] - 1-2 days Forms: Area PCPs Time of Disposition: 13:15
[2023-12-11] MEDS: AZITHROMYCIN 500 MG TAB PO STA (13:33)
[2023-12-11 14:11] VITALS: BP 120/89; PULSE 100; TEMP 98.9
== END 2023-12-11 13:00 | disposition home or self-care (01) ==
LOC: EC 10:52
CPT/HCPCS: 71046; 87636; 87651; 99283

== ENCOUNTER 2024-01-22 08:58 | Emergency (ER) | payer OTHER ==
--- NOTE | 2024-01-22 09:43 | XR ---
EXAMINATION TYPE: XR chest 2V DATE OF EXAM: 01/22/2024 COMPARISON: 12/11/2023 HISTORY: Cough TECHNIQUE: Frontal and lateral views of the chest are obtained. FINDINGS: There is no focal air space opacity, pleural effusion, or pneumothorax seen. The cardiac silhouette size is within normal limits. The osseous structures are intact. IMPRESSION: No acute cardiopulmonary process. [facility], , 01/22/2024 9:41 AM
--- NOTE | 2024-01-22 10:00 | ED ---
URI HPI - General Chief Complaint: Upper Respiratory Infection Stated Complaint: cough vomiting Time Seen by Provider: 01/22/24 09:30 Source: patient, RN notes reviewed Mode of arrival: ambulatory Limitations: no limitations - History of Present Illness Initial Comments: 28 year old female presenting to the ER with a chief complaint of congestion and vomiting. Patient reports for the past few days she has been having a cough, congestion and vomiting. She has not been able to keep anything down. Patient's children have similar symptoms. Denies any known fevers, shortness of breath or chest pain. Patient is not taken anything for symptoms at this time. No significant past medical history. - Related Data Previous Rx's Medication Instructions Recorded Thiamine [Vitamin B-1] 100 mg PO DAILY tab 04/23/22 DULoxetine HCL [Cymbalta] 60 mg PO DAILY 30 Days #30 cap 04/27/22 Mirtazapine [Remeron] 15 mg PO HS 30 Days #30 tab 04/27/22 Multivitamins, Thera [Multivitamin 1 each PO DAILY tab 04/27/22 (formulary)] Naltrexone Microspheres [Vivitrol] 380 mg IM ONCE #1 each 04/27/22 Nicotine 14Mg/24Hr Patch [Habitrol] 1 patch TRANSDERM DAILY 14 Days 04/27/22 #14 patch Thiamine [Vitamin B-1] 100 mg PO DAILY tab 04/27/22 hydrOXYzine pamoate [Vistaril] 50 mg PO DAILY PRN 30 Days #60 cap 04/27/22 Albuterol Inhaler [Ventolin Hfa 1 - 2 puff INHALATION Q6H PRN #1 06/21/23 Inhaler] each Amoxic-Pot Clav 875-125Mg 1 tab PO Q12HR #20 tab 06/21/23 [Augmentin 875-125] predniSONE 50 mg PO DAILY #5 tab 06/21/23 Nirmatrelvir/Ritonavir [Paxlovid 1 each PO DAILY #1 each 08/17/23 300-100 mg Dose Pack] Azithromycin [Zithromax] 250 mg PO DAILY 4 Days #4 tab 12/11/23 Allergies Allergy/AdvReac Type Severity Reaction Status Date / Time cephalexin [From Keflex] Allergy Swelling Verified 01/22/24 09:10 vortioxetine Allergy Swelling Verified 01/22/24 09:10 [From Trintellix] Review of Systems ROS Statement: Those systems with pertinent positive or pertinent negative responses have been documented in the HPI. ROS Other: All systems not noted in ROS Statement are negative. Past Medical History Past Medical History: No Reported History Additional Past Medical History / Comment(s): Chronic nausea and vomiting throughout her -RESOLVED NOW. post pardum 3months History of Any Multi-Drug Resistant Organisms: None Reported Past Surgical History: No Surgical Hx Reported Past Anesthesia/Blood Transfusion Reactions: No Reported Reaction Past Psychological History: No Psychological Hx Reported Smoking Status: Vaper Past Alcohol Use History: Occasional Past Drug Use History: Marijuana - Past Family History Mother Family Medical History: No Reported History General Exam Limitations: no limitations General appearance: alert, in no apparent distress ENT exam: Present: normal exam, normal oropharynx, mucous membranes moist, TM's normal bilaterally Respiratory exam: Present: normal lung sounds bilaterally. Absent: respiratory distress, wheezes, rales, rhonchi, stridor Cardiovascular Exam: Present: regular rate, normal rhythm, normal heart sounds. Absent: systolic murmur, diastolic murmur, rubs, gallop, clicks Neurological exam: Present: alert, oriented X3, CN II-XII intact Skin exam: Present: warm, dry, intact, normal color. Absent: rash Course Vital Signs 01/22/24 01/22/24 01/22/24 09:08 10:15 12:03 Temperature 97.9 F 97.4 F L Pulse Rate 112 H 116 H Respiratory 20 24 22 Rate Blood Pressure 137/105 126/86 O2 Sat by Pulse 97 99 Oximetry Medical Decision Making - Medical Decision Making Was pt. sent in by a medical professional or institution (, PA, SLITTER AND REWINDER, urgent care, hospital, or long term...) When possible be specific @ -No Did you speak to anyone other than the patient for history (EMS, parent, family, police, friend...)? What history was obtained from this source @ -No Did you review nursing and triage notes (agree or disagree)? Why? @ -I reviewed and agree with nursing and triage notes Were old charts reviewed (outside hosp., previous admission, EMS record, old EKG, old radiological studies, urgent care reports/EKG's, long term records)? Report findings @ -No old charts were reviewed Differential Diagnosis (chest pain, altered mental status, abdominal pain women, abdominal pain men, vaginal bleeding, weakness, fever, dyspnea, syncope, headache, dizziness, GI bleed, back pain, seizure, CVA, palpatations, mental health, musculoskeletal)? @ -COVID, RSV, influenza, viral sinusitis, pneumonia this list is not meant to be all-inclusive EKG interpreted by me (3pts min.). @ -None X-rays interpreted by me (1pt min.). @ -CXR interpreted by me negative for limitations, pneumothorax or pleural effusions CT interpreted by me (1pt min.). @ -None done U/S interpreted by me (1pt. min.). @ -None done What testing was considered but not performed or refused? (CT, X-rays, U/S, labs)? Why? @ -None What meds were considered but not given or refused? Why? @ -None Did you discuss the management of the patient with other professionals (professionals i.e. , PA, SLITTER AND REWINDER, lab, RT, psych nurse, bilingual social worker, marine resource economist, teacher, marketing officer, casework supervisor)? Give summary @ -No Was smoking cessation discussed for >3mins.? @ -No Was critical care preformed (if so, how long)? @ -No Were there social determinants of health that impacted care today? How? (Homelessness, low income, unemployed, alcoholism, drug addiction, transportation, low edu. Level, literacy, decrease access to med. care, alf, rehab)? @ -No Was there de-escalation of care discussed even if they declined (Discuss DNR or withdrawal of care, Hospice)? DNR status @ -No What co-morbidities impacted this encounter? (DM, HTN, Smoking, COPD, CAD, Cancer, CVA, ARF, Chemo, Hep., AIDS, mental health diagnosis, sleep apnea, morbid obesity)? @ -None Was patient admitted / discharged? Hospital course, mention meds given and route, prescriptions, significant lab abnormalities, going to OR and other pertinent info. @ -Discharge. 28-year-old female presented to the ER with a chief complaint of congestion and vomiting. History and physical exam completed. Patient is mildly tachycardic at 116 bpm upon my evaluation which is likely believed due to anxiety as patient has 2 young children with her. Vitals otherwise unremarkable. Exam benign. Viral swabs and chest x-ray will be obtained, patient is agreeable. Viral swabs negative. Chest x-ray negative. Patient is able to consume water without difficultly in the ER. No episodes of emesis in ER. Symptoms believed to be viral in nature. Conservative treatment options discussed. Patient stable for discharge at this time. Strict return parameters discussed. Patient discharged in stable condition with follow-up to PCP. Patient verbally expressed understanding and agreement with care plan. Case discussed with ED attending, . Undiagnosed new problem with uncertain prognosis? @ -No Drug Therapy requiring intensive monitoring for toxicity (Heparin, Nitro, Insulin, Cardizem)? @ -No Were any procedures done? @ -No Diagnosis/symptom? @ -Viral illness/viral sinusitis Acute, or Chronic, or Acute on Chronic? @ -Acute Uncomplicated (without systemic symptoms) or Complicated (systemic symptoms)? @ -Uncomplicated Side effects of treatment? @ -No Exacerbation, Progression, or Severe Exacerbation? @ -No Poses a threat to life or bodily function? How? (Chest pain, [place], [place], pneumonia, PE, COPD, DKA, ARF, appy, cholecystitis, CVA, Diverticulitis, Homicidal, Suicidal, threat to staff... and all critical care pts) @ -No - Lab Data Lab Results 01/22/24 Range/Units 09:11 Influenza Type A (PCR) Not Detected (Not Detectd) Influenza Type B (PCR) Not Detected (Not Detectd) RSV (PCR) Not Detected (Not Detectd) SARS-CoV-2 (PCR) Not Detected (Not Detectd) - Radiology Data Radiology results: report reviewed, image reviewed Disposition Clinical Impression: Viral infection, Acute viral sinusitis Disposition: HOME SELF-CARE Condition: Stable Additional Instructions: Follow-up with PCP. Return to the ER for any new or worsening concerns. Return to the ER for new or worsening concerns Is patient prescribed a controlled substance at d/c from ED?: No Referrals: None,Stated [Primary Care Provider] - 1-2 days Forms: Area PCPs Time of Disposition: 10:36
[2024-01-22 12:05] VITALS: BP 126/86; PULSE 116; RESP 22; TEMP 97.4
== END 2024-01-22 12:04 | disposition home or self-care (01) ==
LOC: EC 08:58
DX: B34.9 Viral infection, unspecified (principal); J01.90 Acute sinusitis, unspecified; Z88.1 Allergy status to other antibiotic agents; F17.290 Nicotine dependence, other tobacco product, uncomplicated
CPT/HCPCS: 71046; 87636; 99284

== ENCOUNTER 2024-02-14 11:13 | Inpatient (IN) | payer OTHER ==
[2024-02-14 11:27] VITALS: PULSE 114; RESP 18; TEMP 97.9
--- NOTE | 2024-02-14 11:40 | ED ---
Recheck HPI - General Chief Complaint: Recheck/Abnormal Lab/Rx Stated Complaint: Dizziness Time Seen by Provider: 02/14/24 11:37 Source: patient, RN notes reviewed, old records reviewed Mode of arrival: ambulatory Limitations: no limitations - History of Present Illness Initial Comments: 28-year-old female presented to ER for evaluation of lightheadedness. Patient states while at work today she started to feel hot, lightheaded and like she was going to pass out. She states she sat on the ground prior to actually passing out. She reports she has had numerous episodes of this within the past week. She states earlier last week she was ill with a virus as her son was sick. She states though symptoms have since resolved. During these episodes she does report some shortness of breath but denies any chest pain or palpitations. She states she did not eat breakfast but has been drinking Gatorade this morning. She denies any recent fevers, cough, congestion, abdominal pain, urinary complaints or peripheral edema. Patient does report diarrhea but states this is chronic and she took an Imodium this morning. Patient reports she occasionally drinks alcohol. She does state she had a mixed drink last night. Denies Tylenol use. No daily medications. - Related Data Home Medications Medication Instructions Recorded Confirmed Acetaminophen Tab [Tylenol] 650 mg PO Q4H PRN 02/14/24 02/14/24 Loperamide HCl [Imodium A-D] 2 mg PO QID PRN 02/14/24 02/14/24 Allergies Allergy/AdvReac Type Severity Reaction Status Date / Time cephalexin [From Keflex] Allergy Swelling Verified 02/14/24 13:46 all over vortioxetine Allergy Swelling Verified 02/14/24 13:46 [From Trintellix] all over Review of Systems ROS Statement: Those systems with pertinent positive or pertinent negative responses have been documented in the HPI. ROS Other: All systems not noted in ROS Statement are negative. Past Medical History Past Medical History: No Reported History Additional Past Medical History / Comment(s): Chronic nausea and vomiting throu ghout her -RESOLVED NOW. post pardum 3months History of Any Multi-Drug Resistant Organisms: None Reported Past Surgical History: No Surgical Hx Reported Past Anesthesia/Blood Transfusion Reactions: No Reported Reaction Past Psychological History: No Psychological Hx Reported Smoking Status: Vaper Past Alcohol Use History: Occasional Past Drug Use History: Marijuana - Past Family History Mother Family Medical History: No Reported History General Exam Limitations: no limitations General appearance: alert, in no apparent distress Eye exam: Present: normal appearance, PERRL, EOMI. Absent: scleral icterus, conjunctival injection, periorbital swelling Pupils: Present: normal accommodation ENT exam: Present: normal exam, normal oropharynx, mucous membranes moist, TM's normal bilaterally Respiratory exam: Present: normal lung sounds bilaterally. Absent: respiratory distress, wheezes, rales, rhonchi, stridor Cardiovascular Exam: Present: normal rhythm, tachycardia, normal heart sounds GI/Abdominal exam: Present: soft, normal bowel sounds. Absent: distended, tenderness, guarding, rebound, rigid Extremities exam: Present: normal inspection, full ROM, normal capillary refill. Absent: tenderness, pedal edema, joint swelling, calf tenderness Neurological exam: Present: alert, oriented X3, CN II-XII intact Skin exam: Present: warm, dry, intact, normal color. Absent: rash Course Vital Signs 02/14/24 11:24 Temperature 97.9 F Pulse Rate 114 H Respiratory 18 Rate Blood Pressure 137/95 O2 Sat by Pulse 99 Oximetry - Reevaluation(s) Reevaluation #1: 02/14/24 13:[address] Grey, [facility] physician for admission. Medical Decision Making - Medical Decision Making Was pt. sent in by a medical professional or institution ([facility], CONSULTING GROUP ANALYST, urgent care, hospital, or [facility]...) When possible be specific @ -No Did you speak to anyone other than the patient for history (EMS, parent, family, police, friend...)? What history was obtained from this source @ -No Did you review nursing and triage notes (agree or disagree)? Why? @ -I reviewed and agree with nursing and triage notes Were old charts reviewed (outside hosp., previous admission, EMS record, old EKG, old radiological studies, urgent care reports/EKG's, [facility] records)? Report findings @ -No old charts were reviewed Differential Diagnosis (chest pain, altered mental status, abdominal pain women, abdominal pain men, vaginal bleeding, weakness, fever, dyspnea, syncope, headache, dizziness, GI bleed, back pain, seizure, CVA, palpatations, mental health, musculoskeletal)? @ -Differential Dizziness:Benign paroxysmal positional Vertigo, Meniere's disease, otitis media, acoustic neuroma, vertebrobasilar insufficiency, cerebellar stroke, encephalitis, hypovolemic, arrhythmia, coronary artery syndrome, anemia, this is not meant to be an all-inclusive list EKG interpreted by me (3pts min.). @ -As above X-rays interpreted by me (1pt min.). @ -CXR interpreted by me negative for acute cardiopulmonary process. CT interpreted by me (1pt min.). @ -None done U/S interpreted by me (1pt. min.). @ -None done What testing was considered but not performed or refused? (CT, X-rays, U/S, labs)? Why? @ -None What meds were considered but not given or refused? Why? @ -None Did you discuss the management of the patient with other professionals (professionals i.e. , PA, CONSULTING GROUP ANALYST, lab, RT, psych nurse, social services manager, molded grid and parts inspector, teacher, youth officer, case work aide)? Give summary @ -Yes, case discussed with [facility] physician, , for admission. Was smoking cessation discussed for >3mins.? @ -No Was critical care preformed (if so, how long)? @ -No Were there social determinants of health that impacted care today? How? (Homelessness, low income, unemployed, alcoholism, drug addiction, transportation, low edu. Level, literacy, decrease access to med. care, correction, rehab)? @ -No Was there de-escalation of care discussed even if they declined (Discuss DNR or withdrawal of care, Hospice)? DNR status @ -No What co-morbidities impacted this encounter? (DM, HTN, Smoking, COPD, CAD, Cancer, CVA, ARF, Chemo, Hep., AIDS, mental health diagnosis, sleep apnea, morbid obesity)? @ -None Was patient admitted / discharged? Hospital course, mention meds given and route, prescriptions, significant lab abnormalities, going to OR and other pertinent info. @ -Discharged. 28 year old female presenting to the ER with a chief complaint of lightheadness. History and physical exam completed. Patient is tachycardic upon arrival at 114 bpm. Vitals otherwise stable. Patient denies any acute distress nontoxic-appearing. Syncopal workup will be obtained as patient reports near syncopal episodes. CBC unimpressive. WBC 7.1 hemoglobin 12.9. CMP significant for sodium 134, potassium 2.1, chloride 88, carbon dioxide 36. AST 570, ALT 300 which is believed to be due from patient's alcohol use. Troponin undetectable at <0.012. D-dimer negative at 0.28. CXR negative. Admission considered and discussed with [facility] physician, Dr. Grey, for hypokalemia. UDS, UA and urine hCG pending at time of admission. Patient started on potassium replacement protocol. Patient admitted in stable condition for further evaluation and treatment of hypokalemia. Case discussed with ED attending, Dr. Boyle. Undiagnosed new problem with uncertain prognosis? @ -No Drug Therapy requiring intensive monitoring for toxicity (Heparin, Nitro, Insulin, Cardizem)? @ -No Were any procedures done? @ -No Diagnosis/symptom? @ -Hypokalemia Acute, or Chronic, or Acute on Chronic? @ -Acute Uncomplicated (without systemic symptoms) or Complicated (systemic symptoms)? @ -Complicated Side effects of treatment? @ -No Exacerbation, Progression, or Severe Exacerbation? @ -No Poses a threat to life or bodily function? How? (Chest pain, [place], [place], pneumonia, PE, COPD, DKA, ARF, appy, cholecystitis, CVA, Diverticulitis, Homicidal, Suicidal, threat to staff... and all critical care pts) @ -Yes, electrolyte abnormalities can lead to cardiac arrhythmias. - Lab Data Result diagrams: 02/14/24 11:47 02/14/24 11:47 Lab Results 02/14/24 02/14/24 02/14/24 Range/Units 11:47 11:47 11:47 WBC 7.1 (3.8-10.6) k/uL RBC 5.16 (3.80-5.40) m/uL Hgb 12.9 (11.4-16.0) gm/dL Hct 40.7 (34.0-46.0) % MCV 78.8 L (80.0-100.0) fL MCH 25.1 (25.0-35.0) pg MCHC 31.8 (31.0-37.0) g/dL RDW 19.6 H (11.5-15.5) % Plt Count 239 (150-450) k/uL MPV 9.3 Neutrophils % 75 % Lymphocytes % 17 % Monocytes % 6 % Eosinophils % 1 % Basophils % 1 % Neutrophils # 5.3 (1.3-7.7) k/uL Lymphocytes # 1.2 (1.0-4.8) k/uL Monocytes # 0.4 (0-1.0) k/uL Eosinophils # 0.1 (0-0.7) k/uL Basophils # 0.0 (0-0.2) k/uL Hypochromasia Slight Anisocytosis Slight Microcytosis Slight PT 10.8 (10.0-12.5) sec INR 1.0 (<1.2) APTT 20.8 L (22.0-30.0) sec D-Dimer 0.28 (<0.60) mg/L FEU Sodium 134 L (137-145) mmol/L Potassium 2.1 L* (3.5-5.1) mmol/L Chloride 88 L (98-107) mmol/L Carbon Dioxide 36 H (22-30) mmol/L Anion Gap 10 mmol/L BUN 6 L (7-17) mg/dL Creatinine 0.64 (0.52-1.04) mg/dL Est GFR (CKD-EPI)AfAm >90 (>60 ml/min/1.73 sqM) Est GFR (CKD-EPI)NonAf >90 (>60 ml/min/1.73 sqM) Glucose 149 H (74-99) mg/dL Calcium 9.5 (8.4-10.2) mg/dL Total Bilirubin 0.9 (0.2-1.3) mg/dL AST 570 H (14-36) U/L ALT 300 H (4-34) U/L Alkaline Phosphatase 123 (38-126) U/L Troponin I (0.000-0.034) ng/mL Total Protein 8.4 H (6.3-8.2) g/dL Albumin 4.6 (3.5-5.0) g/dL 02/14/24 Range/Units 11:47 WBC (3.8-10.6) k/uL RBC (3.80-5.40) m/uL Hgb (11.4-16.0) gm/dL Hct (34.0-46.0) % MCV (80.0-100.0) fL MCH (25.0-35.0) pg MCHC (31.0-37.0) g/dL RDW (11.5-15.5) % Plt Count (150-450) k/uL MPV Neutrophils % % Lymphocytes % % Monocytes % % Eosinophils % % Basophils % % Neutrophils # (1.3-7.7) k/uL Lymphocytes # (1.0-4.8) k/uL Monocytes # (0-1.0) k/uL Eosinophils # (0-0.7) k/uL Basophils # (0-0.2) k/uL Hypochromasia Anisocytosis Microcytosis PT (10.0-12.5) sec INR (<1.2) APTT (22.0-30.0) sec D-Dimer (<0.60) mg/L FEU Sodium (137-145) mmol/L Potassium (3.5-5.1) mmol/L Chloride (98-107) mmol/L Carbon Dioxide (22-30) mmol/L Anion Gap mmol/L BUN (7-17) mg/dL Creatinine (0.52-1.04) mg/dL Est GFR (CKD-EPI)AfAm (>60 ml/min/1.73 sqM) Est GFR (CKD-EPI)NonAf (>60 ml/min/1.73 sqM) Glucose (74-99) mg/dL Calcium (8.4-10.2) mg/dL Total Bilirubin (0.2-1.3) mg/dL AST (14-36) U/L ALT (4-34) U/L Alkaline Phosphatase (38-126) U/L Troponin I <0.012 (0.000-0.034) ng/mL Total Protein (6.3-8.2) g/dL Albumin (3.5-5.0) g/dL - EKG Data -: EKG Interpreted by Me EKG Comments: EKG taken at 12: 08 showing a normal sinus rhythm. 0.5 ST depression in inferior lateral leads. No T wave abnormalities. Ventricular rate 81, NV int erval 170, QRS duration 92, QT/QTc 416/453. - Radiology Data Radiology results: report reviewed, image reviewed Disposition Clinical Impression: Hypokalemia, Metabolic alkalosis Disposition: ADMITTED IP TO THIS [facility] Condition: Stable Referrals: None,Stated [Primary Care Provider] - 1-2 days Time of Disposition: 13:20
[2024-02-14] MEDS: SODIUM CHLORIDE 0.9% 1,000 ML IV STA (11:45)
[2024-02-14 12:01] LABS: Anisocytosis Slight; Basophils % (A) 1 %; Eosinophils # (A) 0.1 k/uL (0-0.7); Eosinophils % (A) 1 %; HCT 40.7 % (34.0-46.0); HGB 12.9 gm/dL (11.4-16.0); Hypochromasia Slight; Lymphocytes # (A) 1.2 k/uL (1.0-4.8); Lymphocytes % (A) 17 %; MCH 25.1 pg (25.0-35.0); MCHC 31.8 g/dL (31.0-37.0); MCV 78.8 fL (80.0-100.0); Mean Platelet Volume 9.3; Microcytosis Slight; Monocytes # (A) 0.4 k/uL (0-1.0); Monocytes % (A) 6 %; Neutrophils # (A) 5.3 k/uL (1.3-7.7); Neutrophils % (A) 75 %; Platelet Count 239 k/uL (150-450); RBC 5.16 m/uL (3.80-5.40); RDW 19.6 % (11.5-15.5); WBC 7.1 k/uL (3.8-10.6)
--- NOTE | 2024-02-14 12:01 | XR ---
EXAMINATION TYPE: XR chest 2V DATE OF EXAM: 02/14/2024 11:52 AM COMPARISON: 01/22/2024 CLINICAL INDICATION: Female, 28 years old with history of syncope, , TECHNIQUE: PA and lateral views FINDINGS: The cardiomediastinal silhouette, aorta, and pulmonary vasculature are within normal limits. Lungs an d pleural spaces are clear. IMPRESSION: No acute cardiopulmonary process. [facility], , 02/14/2024 11:59 AM
[2024-02-14 12:22] LABS: AST 570 U/L (14-36); African American GFR (CKD) >90 (>60 ml/min/1.73 sqM); Albumin 4.6 g/dL (3.5-5.0); Alkaline Phosphatase 123 U/L (38-126); Anion Gap 10 mmol/L; Blood Urea Nitrogen 6 mg/dL (7-17); Calcium 9.5 mg/dL (8.4-10.2); Carbon Dioxide 36 mmol/L (22-30); Chloride 88 mmol/L (98-107); Glucose 149 mg/dL (74-99); Non-African American GFR(CKD) >90 (>60 ml/min/1.73 sqM); Sodium 134 mmol/L (137-145); Total Bilirubin 0.9 mg/dL (0.2-1.3); Total Protein 8.4 g/dL (6.3-8.2)
[2024-02-14 12:31] LABS: Prothrombin Time 10.8 sec (10.0-12.5)
[2024-02-14 12:35] LABS: ALT 300 U/L (4-34); Partial Thromboplastin Time 20.8 sec (22.0-30.0); Potassium 2.1 mmol/L (3.5-5.1)
[2024-02-14] MEDS ORDERED: Potassium Replacement Protocol 1 EACH MISC MISCELLANE PRN (12:43)
[2024-02-14] MEDS: POTASSIUM CHLORIDE ER 20 MEQ TAB.ER PO SCH (12:56)
[2024-02-14] MEDS: POTASSIUM CHLORIDE 20 MEQ in WATER FOR INJECTION 1 100ML.BAG IVPB SCH (13:19)
[2024-02-14] MEDS ORDERED: NALOXONE 0.4 MG/ML 1 ML VIAL IV PRN (13:21)
[2024-02-14] MEDS ORDERED: IBUPROFEN 400 MG TAB PO PRN (13:21)
[2024-02-14] MEDS ORDERED: ONDANSETRON 4 MG/2 ML VIAL IVP PRN (13:21)
[2024-02-14] MEDS: SODIUM CHLORIDE 0.9% 1,000 ML IV SCH (14:54)
[2024-02-14] MEDS ORDERED: POTASSIUM CHLORIDE 20 MEQ in WATER FOR INJECTION 1 100ML.BAG IVPB SCH (15:00)
[2024-02-14 16:00] VITALS: BP 124/91
--- NOTE | 2024-02-14 16:14 | P.HPIM ---
History of Present Illness H&P Date: 02/14/24 Patient is a 28-year-old female with no known risk factors or medical history came in for lightheadedness. Patient reported that last week about 02/05, patient and her son had a viral illness wearing the experienced nausea and nonbilious nonbloody vomiting, watery nonbilious nonbloody diarrhea, and nasal congestion. Patient also experienced lightheadedness and fatigue during this time. Patient noted to be improved symptoms by 02/10 but noted that the lightheadedness and fatigue did not improve. Since then patient experienced multiple episodes of lightheadedness with prior sensation of being warm and "tingly "and would need to rest for a few minutes intermittently throughout the days. Today, she was lightheaded and almost lost consciousness at work which led her to seek care. She denied hematemesis, hematochezia, focal weakness, changes in speech, changes in vision, chest pain, palpitations, shortness of breath, calf pain, abdominal pain, recent travel, cough, sweats, weight loss, headaches, dysuria, or hematuria. Chest x-ray in the emergency room showed no acute process. EKG showed sinus rhythm with a rate of [address]-T changes no prolonged QT good R wave progression no flattening of T waves QTc 453. In the ED, WBC 7.1 hemoglobin 12.9 platelet count 239,000 PT 10.8 INR 1 PTT 20.8 D-dimer 0.28 sodium 134 potassium 2.1 chloride 88 bicarb 36 BUN 6 creatinine 0.64 glucose 149 calcium 9.5 AST 570 ALT 300 troponin negative at less than 0.0 12 total protein 8.4 albumin 4.6. In the ED, patient was afebrile at 97.9 heart rate elevated at 114 blood pressure 137/95 O2 saturation 98% at room air Review of systems: Pertinent positives and negatives as discussed in HPI, a complete review of systems was performed and all other systems are negative. Social history: Tobacco: Current smoker. Patient vapes daily. 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 Physical examination: Vital signs reviewed General: non toxic, no distress, appears at stated age, on room air Derm: no unusual rashes/lesions, warm Head: atraumatic, normocephalic, symmetric Eyes: EOMI, anicteric sclera, pupils equal round reactive to light ENT: Nose and ears atraumatic Neck: No cervical lymphadenopathy, trachea midline, supple Mouth: no lip lesion, mucus membranes moist Cardiovascular: S1S2 reg, no murmur Lungs: CTA bilateral, no rhonchi, no rales, no accessory muscle use Abdominal: soft, nondistended, nontender to palpation, no guarding Ext: muscle strength 5 out of 5 in all 4 extremities grossly, no gross muscle atrophy, no contractures, positive dorsalis pedis pulse bilateral, no edema Neuro: CN II-XI grossly intact, no gross focal neuro deficits Psych: Alert and oriented x 3, appropriate affect and mood Assessment/Plan: 28-year-old female who came in for lighted headedness being evaluated for hypochloremic hypokalemic metabolic alkalosis #. Hypochloremic hypokalemic metabolic alkalosis #. Nausea and vomiting Cardiac monitoring Orthostatics 0.9 normal saline bolus given at the ED Continue IV fluids 0.9% normal saline at 75 cc/h initiated in the ED Ondansetron 4 mg IVP every 8 as needed for nausea and vomiting Replete potassium to a goal of 4 Check potassium after repletion at 8 PM TSH UDS hCG Urinalysis magnesium 1.5. Will replete Check magnesium after repletion #. Transaminitis #. Alcohol abuse disorder, mild AST 550 ALT 300. Patient does not have right upper quadrant pain, or distention Will monitor with CMP F: 0.9 normal saline at 75 cc E: Replete potassium and magnesium N: Regular diet A: Scan self ambulate DVT ppx: Lovenox 40 mg subcu GI ppx: Protonix 40 mg p.o. daily Dispo: The patient is admitted with an anticipated greater than 2 midnight stay for evaluation of Hypochloremic hypokalemic metabolic alkalosis CODE STATUS: Full Discussed with: Patient Anticipated discharge place: [facility] MD PGY-1 IM Dictation was produced using [employer] dictation software. please excuse any gra mmatical, word or spelling errors. I saw and evaluated the patient during the kong and critical portions of this encounter, and discussed the case in detail with the resident author of this note, I agree with the Assessment and Plan, and my changes, if any, are highlighted in blue. Past Medical History Past Medical History: No Reported History Additional Past Medical History / Comment(s): Chronic nausea and vomiting throughout her -RESOLVED NOW. post pardum 3months History of Any Multi-Drug Resistant Organisms: None Reported Past Surgical History: No Surgical Hx Reported Past Anesthesia/Blood Transfusion Reactions: No Reported Reaction Past Psychological History: No Psychological Hx Reported Smoking Status: Vaper Past Alcohol Use History: Occasional Past Drug Use History: Marijuana - Past Family History Mother Family Medical History: No Reported History Medications and Allergies Home Medications Medication Instructions Recorded Confirmed Type Acetaminophen Tab [Tylenol] 650 mg PO Q4H PRN 02/14/24 02/14/24 History Loperamide HCl [Imodium A-D] 2 mg PO QID PRN 02/14/24 02/14/24 History Allergies Allergy/AdvReac Type Severity Reaction Status Date / Time cephalexin [From Keflex] Allergy Swelling Verified 02/14/24 13:46 all over vortioxetine Allergy Swelling Verified 02/14/24 13:46 [From Trintellix] all over Physical Exam Osteopathic Statement: *. No significant issues noted on an osteopathic structural exam other than those noted in the History and Physical/Consult. Vitals: Vital Signs Temp Pulse Resp BP Pulse Ox 02/14/24 11:24 97.9 F 114 H 18 137/95 99 Intake and Output 02/13/24 02/14/24 02/14/24 22:59 06:59 14:59 Other: Weight 86.183 kg Results CBC & Chem 7: 02/14/24 11:47 02/14/24 11:47 Labs: Abnormal Lab Results - Last 24 Hours (Table) 02/14/24 02/14/24 02/14/24 Range/Units 11:47 11:47 11:47 MCV 78.8 L (80.0-100.0) fL RDW 19.6 H (11.5-15.5) % APTT 20.8 L (22.0-30.0) sec Sodium 134 L (137-145) mmol/L Potassium 2.1 L* (3.5-5.1) mmol/L Chloride 88 L (98-107) mmol/L Carbon Dioxide 36 H (22-30) mmol/L BUN 6 L (7-17) mg/dL Glucose 149 H (74-99) mg/dL AST 570 H (14-36) U/L ALT 300 H (4-34) U/L Total Protein 8.4 H (6.3-8.2) g/dL
[2024-02-14] MEDS: MAGNESIUM SULFATE-D5W PMX 1 GM in DEXTROSE/WATER 1 100ML.BAG IVPB SCH (16:22)
[2024-02-14 17:32] LABS: Appearance,Urine Clear (Clear); Bacteria,Urine Moderate /hpf; Bilirubin,Urine Negative (Negative); Blood,Urine Negative (Negative); Color,Urine Light Yellow; Glucose,Urine (UA) Negative (Negative); Ketones,Urine Negative (Negative); Leukocyte Esterase,Urine Negative (Negative); Nitrite,Urine Positive (Negative); PH, Urine 7.5 (5.0-8.0); Protein,Urine Negative (Negative); RBC,Urine <1 /hpf (0-5); Specific Gravity,Urine 1.007 (1.001-1.035); Squamous Epithelial Cell,Urine 1 /hpf (0-4); Urobilinogen,Urine <2.0 mg/dL (<2.0); WBC,Urine 2 /hpf (0-5)
--- NOTE | 2024-02-14 17:52 | P.DS ---
Providers Date of admission: 02/14/24 14:23 Attending physician: Seun Grey MD Primary care physician: Stated None Hospital Course: Hospital Course: Patient is a 28-year-old female with no known risk factors or medical history came in for lightheadedness. Chest x-ray in the emergency room showed no acute process. EKG showed sinus rhythm with a rate of [address]-T changes no prolonged QT good R wave progression no flattening of T waves QTc 453. In the ED, WBC 7.1 hemoglobin 12.9 platelet count 239,000 PT 10.8 INR 1 PTT 20.8 D-dimer 0.28 sodium 134 potassium 2.1 chloride 88 bicarb 36 BUN 6 creatinine 0.64 glucose 149 calcium 9.5 AST 570 ALT 300 troponin negative at less than 0.0 12 total protein 8.4 albumin 4.6. Patient evaluated for hypochloremic hypokalemic metabolic alkalosis, and transaminitis. Patient placed on cardiac monitoring, orthostatics ordered, placed on IV fluids point normal saline, given ondansetron IV push as needed, and potassium and magnesium repleted. In the middle of treatment, patient requested to leave A. Final Diagnosis: #. Hypochloremic hypokalemic metabolic alkalosis #. Transaminitis #. Alcohol abuse disorder, mild Physical examination: Vital signs reviewed General: non toxic, no distress, appears at stated age Derm: no unusual rashes/lesions, warm Head: atraumatic, normocephalic, symmetric Eyes: EOMI, anicteric sclera, pupils equal round reactive to light ENT: Nose and ears atraumatic Neck: No cervical lymphadenopathy, trachea midline, supple Mouth: no lip lesion, mucus membranes moist Cardiovascular: S1S2 reg, no murmur Lungs: CTA bilateral, no rhonchi, no rales, no accessory muscle use Abdominal: soft, nondistended, nontender to palpation, no guarding Ext: muscle strength 5 out of 5 in all 4 extremities grossly, no gross muscle atrophy, no contractures, positive dorsalis pedis pulse bilateral, no edema Neuro: CN II-XI grossly intact, no gross focal neuro deficits Psych: Alert, oriented, appropriate affect and mood I saw and evaluated the patient during the kong and critical portions of this encounter, and discussed the case in detail with the resident author of this note, I agree with the Assessment and Plan, and my changes, if any, are highlighted in blue. Patient Condition at Discharge: Stable Plan - Discharge Summary New Discharge Prescriptions: No Action Acetaminophen Tab [Tylenol] 650 mg PO Q4H PRN PRN Reason: Fever And/ Or Pain Loperamide HCl [Imodium A-D] 2 mg PO QID PRN PRN Reason: Diarrhea Discharge Medication List Acetaminophen Tab [Tylenol] 650 mg PO Q4H PRN 02/14/24 [History] Loperamide HCl [Imodium A-D] 2 mg PO QID PRN 02/14/24 [History] Follow up Appointment(s)/Referral(s): None,Stated [Primary Care Provider] - 1-2 days Discharge Disposition: LEFT AGAINST MEDICAL ADVICE
[2024-02-14 17:53] LABS: Amphetamine Screen,Urine Not Detected (NotDetected); Barbiturate Screen,Urine Not Detected (NotDetected); Benzodiazepines Screen,Urine Not Detected (NotDetected); Cocaine Screen,Urine Not Detected (NotDetected); Methadone Screen, Urine Not Detected (NotDetected); Opiate Screen,Urine Not Detected (NotDetected); Oxycodone Screen, Urine Not Detected (NotDetected); Phencyclidine Screen,Urine Not Detected (NotDetected); Tricyclic Antidepressant,Urine Not Detected (NotDetected); Urn Cannabinoid Scrn Detected (NotDetected)
[2024-02-15] MEDS ORDERED: PANTOPRAZOLE 40 MG TABLET PO SCH (07:30)
[2024-02-15] MEDS ORDERED: ENOXAPARIN 40 MG/0.4 ML SYRINGE SQ SCH (09:00)
== END 2024-02-14 16:25 | disposition left against medical advice (07) | DRG 641 ==
LOC: EC 11:13 → 4SSUR 14:23
PROVIDERS: ADMIT Internal Medicine; ATTEND Internal Medicine
DX: E87.6 Hypokalemia (principal); E87.3 Alkalosis; E87.8 Other disorders of electrolyte and fluid balance, not elsewhere classified; F10.10 Alcohol abuse, uncomplicated; F17.290 Nicotine dependence, other tobacco product, uncomplicated
CPT/HCPCS: 36415; 71046; 80053; 80306; 81001; 81025; 83735; 84484; 85025; 85379; 85610; 85730; 93005; 96361; 96365; 96366; 99284

== ENCOUNTER 2024-02-14 20:10 | Emergency (ER) | payer OTHER ==
[2024-02-14 20:18] VITALS: TEMP 98.4
--- NOTE | 2024-02-14 20:47 | ED ---
Recheck HPI - General Chief Complaint: Recheck/Abnormal Lab/Rx Stated Complaint: Abnormal Labs Time Seen by Provider: 02/14/24 20:30 Source: patient, RN notes reviewed Mode of arrival: ambulatory Limitations: no limitations - History of Present Illness Initial Comments: This is a 28-year-old female with no significant past medical history is presenting to the emergency department for a recheck. Patient reported prior in the day for symptoms of a near syncopal event and was admitted to the hospital for evaluation of metabolic alkalosis and hypokalemia. 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 Patient presents for recheck of electrolytes and further resuscitation. Currently she is denying chest pain, shortness of breath, difficulty breathing, abdominal pain, headaches. Patient states that she is not interesting in being readmitted to the hospital. - Related Data Home Medications Medication Instructions Recorded Confirmed Acetaminophen Tab [Tylenol] 650 mg PO Q4H PRN 02/14/24 02/14/24 Loperamide HCl [Imodium A-D] 2 mg PO QID PRN 02/14/24 02/14/24 Allergies Allergy/AdvReac Type Severity Reaction Status Date / Time cephalexin [From Keflex] Allergy Swelling Verified 02/14/24 20:18 all over vortioxetine Allergy Swelling Verified 02/14/24 20:18 [From Trintellix] all over Review of Systems ROS Statement: Those systems with pertinent positive or pertinent negative responses have been documented in the HPI. ROS Other: All systems not noted in ROS Statement are negative. Past Medical History Past Medical History: No Reported History Additional Past Medical History / Comment(s): Chronic nausea and vomiting throughout her -RESOLVED NOW. post pardum 3months History of Any Multi-Drug Resistant Organisms: None Reported Past Surgical History: No Surgical Hx Reported Past Anesthesia/Blood Transfusion Reactions: No Reported Reaction Past Psychological History: No Psychological Hx Reported Smoking Status: Vaper Past Alcohol Use History: Occasional Past Drug Use History: Marijuana - Past Family History Mother Family Medical History: No Reported History General Exam Limitations: no limitations General appearance: alert, in no apparent distress Eye exam: Present: normal appearance, PERRL, EOMI. Absent: scleral icterus, conjunctival injection, periorbital swelling Neck exam: Present: normal inspection. Absent: tenderness, meningismus, lymphadenopathy Respiratory exam: Present: normal lung sounds bilaterally. Absent: respiratory distress, wheezes, rales, rhonchi, stridor Cardiovascular Exam: Present: regular rate, normal rhythm, normal heart sounds. Absent: systolic murmur, diastolic murmur, rubs, gallop, clicks GI/Abdominal exam: Present: soft, normal bowel sounds. Absent: distended, tenderness, guarding, rebound, rigid Extremities exam: Present: normal inspection, full ROM, normal capillary refill. Absent: tenderness, pedal edema, joint swelling, calf tenderness Back exam: Present: normal inspection Skin exam: Present: warm, dry, intact, normal color. Absent: rash Course Vital Signs 02/14/24 20:16 Temperature 98.4 F Pulse Rate 107 H Respiratory 16 Rate Blood Pressure 142/96 O2 Sat by Pulse 99 Oximetry Medical Decision Making - Medical Decision Making Was pt. sent in by a medical professional or institution ([id number], [employer], urgent care, hospital, or prison...) When possible be specific @ -No Did you speak to anyone other than the patient for history (EMS, parent, family, police, friend...)? What history was obtained from this source @ -No Did you review nursing and triage notes (agree or disagree)? Why? @ -I reviewed and agree with nursing and triage notes Were old charts reviewed (outside hosp., previous admission, EMS record, old EKG, old radiological studies, urgent care reports/EKG's, prison records)? Report findings @ -Reviewed patient's previous chart note from earlier today which revealed hypokalemia and metabolic alkalosis Differential Diagnosis (chest pain, altered mental status, abdominal pain women, abdominal pain men, vaginal bleeding, weakness, fever, dyspnea, syncope, headache, dizziness, GI bleed, back pain, seizure, CVA, palpatations, mental health, musculoskeletal)? @ -Differential Syncope: Valvular disease, hypertrophic cardiomyopathy, pulmonary embolism, tamponade, tachycardia, bradycardia, PR, hypovolemia, hemorrhage, dissection, anemia, intracranial hemorrhage, seizure, hypoglycemia, carbon monoxide poisoning, this is not meant to be an all-inclusive list. EKG interpreted by me (3pts min.). @ -Completed 2329 sinus rhythm with a ventricular rate of 82, [place] interval 175, QRS 84, QTc 477. there are noted U waves consistent with hypokalemia X-rays interpreted by me (1pt min.). @ -None done CT interpreted by me (1pt min.). @ -None done U/S interpreted by me (1pt. min.). @ -None done What testing was considered but not performed or refused? (CT, X-rays, U/S, labs)? Why? @ -None What meds were considered but not given or refused? Why? @ -None Did you discuss the management of the patient with other professionals (professionals i.e. , PA, EVENT PRODUCER, lab, RT, psych nurse, social work administrator, chiller hand, teacher, information management officer, block and case maker)? Give summary @ -No Was smoking cessation discussed for >3mins.? @ -No Was critical care preformed (if so, how long)? @ -No Were there social determinants of health that impacted care today? How? (Homelessness, low income, unemployed, alcoholism, drug addiction, transportation, low edu. Level, literacy, decrease access to med. care, longterm, rehab)? @ -No Was there de-escalation of care discussed even if they declined (Discuss DNR or withdrawal of care, Hospice)? DNR status @ -No What co-morbidities impacted this encounter? (DM, HTN, Smoking, COPD, CAD, Cancer, CVA, ARF, Chemo, Hep., AIDS, mental health diagnosis, sleep apnea, morbid obesity)? @ -None Was patient admitted / discharged? Hospital course, mention meds given and route, prescriptions, significant lab abnormalities, going to OR and other pertinent info. @ -discharged. 28-year-old female presenting to the emergency department for reevaluation. Patient is resting comfortably in no signs acute distress. Vitals are stable. Patient's laboratory results remarkable for hypochloremic hypokalemic metabolic alkalosis with a chloride 92, bicarb 35, potassium 2.4, sodium 132. At this time patient is started on potassium supplementation. Di shielaussed with patient at bedside recommend that she be admitted for observation to monitor electrolytes and potassium repletion however patient has continually declined stating that she is unable to stay due to her having children with no options for them staying elsewhere. Patient was asked numerous times if she would like to stay however has declined. Patient is requesting discharge after medication ministration. Strongly encourage patient to follow-up with primary care provider outpatient for recheck of potassium and to return back to the emergency department for any new or worsening symptoms. Discussed with Dr. Israel Undiagnosed new problem with uncertain prognosis? @ -No Drug Therapy requiring intensive monitoring for toxicity (Heparin, Nitro, Insulin, Cardizem)? @ -No Were any procedures done? @ -No Diagnosis/symptom? @ -hypokalemia, hypochloremic hypokalemic metabolic alkalosis Acute, or Chronic, or Acute on Chronic? @ -Acute Uncomplicated (without systemic symptoms) or Complicated (systemic symptoms)? @ -Complicated Side effects of treatment? @ -No Exacerbation, Progression, or Severe Exacerbation? @ -No Poses a threat to life or bodily function? How? (Chest pain, USA, PR, pneumonia, PE, COPD, DKA, ARF, appy, cholecystitis, CVA, Diverticulitis, Homicidal, Suicidal, threat to staff... and all critical care pts) @ -No - Lab Data Result diagrams: 02/14/24 20:50 02/14/24 20:50 Lab Results 02/14/24 02/14/24 Range/Units 20:50 20:50 WBC 6.5 (3.8-10.6) k/uL RBC 4.44 (3.80-5.40) m/uL Hgb 11.2 L (11.4-16.0) gm/dL Hct 35.2 (34.0-46.0) % MCV 79.2 L (80.0-100.0) fL MCH 25.2 (25.0-35.0) pg MCHC 31.8 (31.0-37.0) g/dL RDW 19.5 H (11.5-15.5) % Plt Count 203 (150-450) k/uL MPV 10.0 Neutrophils % 59 % Lymphocytes % 28 % Monocytes % 9 % Eosinophils % 1 % Basophils % 0 % Neutrophils # 3.9 (1.3-7.7) k/uL Lymphocytes # 1.8 (1.0-4.8) k/uL Monocytes # 0.6 (0-1.0) k/uL Eosinophils # 0.1 (0-0.7) k/uL Basophils # 0.0 (0-0.2) k/uL Hypochromasia Slight Anisocytosis Slight Microcytosis Slight Sodium 132 L (137-145) mmol/L Potassium 2.4 L* (3.5-5.1) mmol/L Chloride 92 L (98-107) mmol/L Carbon Dioxide 35 H (22-30) mmol/L Anion Gap 5 mmol/L BUN 7 (7-17) mg/dL Creatinine 0.64 (0.52-1.04) mg/dL Est GFR (CKD-EPI)AfAm >90 (>60 ml/min/1.73 sqM) Est GFR (CKD-EPI)NonAf >90 (>60 ml/min/1.73 sqM) Glucose 111 H (74-99) mg/dL Calcium 8.7 (8.4-10.2) mg/dL Magnesium 1.7 (1.6-2.3) mg/dL Total Bilirubin 0.6 (0.2-1.3) mg/dL AST 380 H (14-36) U/L ALT 227 H (4-34) U/L Alkaline Phosphatase 88 (38-126) U/L Total Protein 6.9 (6.3-8.2) g/dL Albumin 3.7 (3.5-5.0) g/dL Disposition Clinical Impression: Hypokalemia, Metabolic alkalosis Disposition: HOME SELF-CARE Condition: Stable Instructions (If sedation given, give patient instructions): Hypokalemia (ED) Additional Instructions: Please return to the Emergency Department if symptoms worsen or any other concerns. It is vital that you follow-up with your primary care provider for repeat lab draw for potassium level Is patient prescribed a controlled substance at d/c from ED?: No Referrals: None,Stated [Primary Care Provider] - 1-2 days Time of Disposition: 00:47
[2024-02-14 21:28] LABS: Anisocytosis Slight; Basophils % (A) 0 %; Eosinophils # (A) 0.1 k/uL (0-0.7); Eosinophils % (A) 1 %; HCT 35.2 % (34.0-46.0); HGB 11.2 gm/dL (11.4-16.0); Hypochromasia Slight; Lymphocytes # (A) 1.8 k/uL (1.0-4.8); Lymphocytes % (A) 28 %; MCH 25.2 pg (25.0-35.0); MCHC 31.8 g/dL (31.0-37.0); MCV 79.2 fL (80.0-100.0); Microcytosis Slight; Monocytes # (A) 0.6 k/uL (0-1.0); Monocytes % (A) 9 %; Neutrophils # (A) 3.9 k/uL (1.3-7.7); Neutrophils % (A) 59 %; Platelet Count 203 k/uL (150-450); RBC 4.44 m/uL (3.80-5.40); RDW 19.5 % (11.5-15.5); WBC 6.5 k/uL (3.8-10.6)
[2024-02-14 21:39] LABS: AST 380 U/L (14-36); African American GFR (CKD) >90 (>60 ml/min/1.73 sqM); Albumin 3.7 g/dL (3.5-5.0); Alkaline Phosphatase 88 U/L (38-126); Anion Gap 5 mmol/L; Blood Urea Nitrogen 7 mg/dL (7-17); Calcium 8.7 mg/dL (8.4-10.2); Carbon Dioxide 35 mmol/L (22-30); Chloride 92 mmol/L (98-107); Glucose 111 mg/dL (74-99); Magnesium 1.7 mg/dL (1.6-2.3); Non-African American GFR(CKD) >90 (>60 ml/min/1.73 sqM); Sodium 132 mmol/L (137-145); Total Bilirubin 0.6 mg/dL (0.2-1.3); Total Protein 6.9 g/dL (6.3-8.2)
[2024-02-14 21:51] LABS: ALT 227 U/L (4-34); Potassium 2.4 mmol/L (3.5-5.1)
[2024-02-14] MEDS: POTASSIUM CHLORIDE 20 MEQ in WATER FOR INJECTION 1 100ML.BAG IVPB STA (22:53)
[2024-02-14] MEDS: POTASSIUM CHLORIDE ER 20 MEQ TAB.ER PO STA (22:53)
[2024-02-15 01:17] VITALS: BP 124/100; PULSE 90; RESP 16
== END 2024-02-15 01:00 | disposition home or self-care (01) ==
LOC: EC 20:10
DX: E87.6 Hypokalemia (principal); E87.3 Alkalosis; F17.290 Nicotine dependence, other tobacco product, uncomplicated; Z88.1 Allergy status to other antibiotic agents; Z88.8 Allergy status to other drugs, medicaments and biological substances
CPT/HCPCS: 36415; 93005; 80053; 83735; 85025; 99284; 96365; 96366; J3480

== ENCOUNTER 2024-09-27 15:14 | Emergency (ER) | payer OTHER ==
[2024-09-27 15:21] VITALS: TEMP 97.3
--- NOTE | 2024-09-27 16:22 | ED ---
ENT HPI - General Chief complaint: ENT Stated complaint: sore throat Time Seen by Provider: 09/27/24 16:18 Source: patient, RN notes reviewed Mode of arrival: ambulatory Limitations: no limitations - History of Present Illness Initial comments: 29-year-old female presenting for left otalgia x 1 day with associated hearing loss. States she has had 3 days of sore throat, rhinorrhea, and cough. She was [facility] a [facility] yesterday where they tested her for flu, COVID-19, RSV, and strep and everything came back negative. Denies difficulty breathing or swallowing. Denies fevers. - Related Data Home Medications Medication Instructions Recorded Confirmed Acetaminophen Tab [Tylenol] 650 mg PO Q4H PRN 02/14/24 02/14/24 Loperamide HCl [Imodium A-D] 2 mg PO QID PRN 02/14/24 02/14/24 Previous Rx's Medication Instructions Recorded Metoclopramide [Reglan] 10 mg PO TID PRN #15 tab 04/14/24 Ondansetron Odt [Zofran Odt] 4 mg PO Q8HR PRN #20 tab 04/14/24 Amoxicillin 875 mg PO Q12HR 7 Days #14 tablet 09/27/24 Allergies Allergy/AdvReac Type Severity Reaction Status Date / Time cephalexin [From Keflex] Allergy Swelling Verified 09/27/24 15:20 all over vortioxetine Allergy Swelling Verified 09/27/24 15:20 [From Trintellix] all over Review of Systems ROS Statement: Those systems with pertinent positive or pertinent negative responses have been documented in the HPI. ROS Other: All systems not noted in ROS Statement are negative. Past Medical History Past Medical History: No Reported History Additional Past Medical History / Comment(s): Chronic nausea and vomiting throughout her -RESOLVED NOW. post pardum 3months History of Any Multi-Drug Resistant Organisms: None Reported Past Surgical History: No Surgical Hx Reported Past Anesthesia/Blood Transfusion Reactions: No Reported Reaction Past Psychological History: No Psychological Hx Reported Smoking Status: Vaper Past Alcohol Use History: Occasional Past Drug Use History: Marijuana - Past Family History Mother Family Medical History: No Reported History General Exam Limitations: no limitations General appearance: alert, in no apparent distress Head exam: Present: atraumatic, normocephalic, normal inspection Eye exam: Present: normal appearance, PERRL, EOMI. Absent: scleral icterus, conjunctival injection, periorbital swelling ENT exam: Present: normal exam, mucous membranes moist, TM's normal bilaterally (Left TM mildly erythematous and bulging. Ear canal clear. Right TM normal), other (No mastoid erythema or edema). Absent: normal oropharynx (Tonsils mildly erythematous and 2+ bilaterally, no exudate) Neck exam: Present: normal inspection. Absent: tenderness, meningismus, lymphadenopathy Respiratory exam: Present: normal lung sounds bilaterally. Absent: respiratory distress, wheezes, rales, rhonchi, stridor Cardiovascular Exam: Present: regular rate, normal rhythm, normal heart sounds. Absent: systolic murmur, diastolic murmur, rubs, gallop, clicks Neurological exam: Present: alert, oriented X3 Psychiatric exam: Present: normal affect, normal mood Skin exam: Present: warm, dry, intact, normal color. Absent: rash Course Vital Signs 09/27/24 15:17 Temperature 97.3 F L Pulse Rate 118 H Respiratory 16 Rate Blood Pressure 137/86 O2 Sat by Pulse 100 Oximetry Medical Decision Making - Medical Decision Making Was pt. sent in by a medical professional or institution (, PA, PILOT PLANT RESEARCH TECHNICIAN, urgent care, hospital, or correction...) When possible be specific @ -No Did you speak to anyone other than the patient for history (EMS, parent, family, police, friend...)? What history was obtained from this source @ -No Did you review nursing and triage notes (agree or disagree)? Why? @ -I reviewed and agree with nursing and triage notes Were old charts reviewed (outside hosp., previous admission, EMS record, old EKG, old radiological studies, urgent care reports/EKG's, correction records)? Report findings @ -No old charts were reviewed Differential Diagnosis (chest pain, altered mental status, abdominal pain women, abdominal pain men, vaginal bleeding, weakness, fever, dyspnea, syncope, headache, dizziness, GI bleed, back pain, seizure, CVA, palpatations, mental health, musculoskeletal)? @ -Otitis media, otitis externa, viral URI, strep pharyngitis, foreign body, allergic rhinitis EKG interpreted by me (3pts min.). @ -None X-rays interpreted by me (1pt min.). @ -None done CT interpreted by me (1pt min.). @ -None done U/S interpreted by me (1pt. min.). @ -None done What testing was considered but not performed or refused? (CT, X-rays, U/S, labs)? Why? @ -Considered Cepheid and strep swabs however patient states she had this done yesterday and was negative What meds were considered but not given or refused? Why? @ -None Did you discuss the management of the patient with other professionals (professionals i.e. , PA, PILOT PLANT RESEARCH TECHNICIAN, lab, RT, psych nurse, foster care social worker, dealer relationship manager, teacher, grants officer, caser up)? Give summary @ -No Was smoking cessation discussed for >3mins.? @ -No Was critical care preformed (if so, how long)? @ -No Were there social determinants of health that impacted care today? How? (Homelessness, low income, unemployed, alcoholism, drug addiction, transportation, low edu. Level, literacy, decrease access to med. care, retirement, rehab)? @ -No Was there de-escalation of care discussed even if they declined (Discuss DNR or withdrawal of care, Hospice)? DNR status @ -No What co-morbidities impacted this encounter? (DM, HTN, Smoking, COPD, CAD, Cancer, CVA, ARF, Chemo, Hep., AIDS, mental health diagnosis, sleep apnea, morbid obesity)? @ -None Was patient admitted / discharged? Hospital course, mention meds given and route, prescriptions, significant lab abnormalities, going to OR and other pertinent info. @ -Discharge. 29-year-old female presenting for left otalgia x 1 day with associated hearing loss. Left TM is erythematous and bulging. No sign of mastoiditis. Patient will be provided with an outpatient course of amoxicillin for left otitis media. Appropriate return precautions and supportive care discussed. Case was discussed with my ED attending Dr. Ramirez Undiagnosed new problem with uncertain prognosis? @ -No Drug Therapy requiring intensive monitoring for toxicity (Heparin, Nitro, Insulin, Cardizem)? @ -No Were any procedures done? @ -No Diagnosis/symptom? @ -Left otitis media Acute, or Chronic, or Acute on Chronic? @ -Acute Uncomplicated (without systemic symptoms) or Complicated (systemic symptoms)? @ -Uncomplicated Side effects of treatment? @ -No Exacerbation, Progression, or Severe Exacerbation? @ -No Poses a threat to life or bodily function? How? (Chest pain, [place], [place], pneumonia, PE, COPD, DKA, ARF, appy, cholecystitis, CVA, Diverticulitis, Homicidal, Suicidal, threat to staff... and all critical care pts) @ -No Disposition Clinical Impression: Left otitis media Disposition: HOME SELF-CARE Condition: Stable Instructions (If sedation given, give patient instructions): Ear Infection (ED) Additional Instructions: Take amoxicillin as prescribed. Take a daily antihistamine such as Zyrtec or Claritin. Please return to the Emergency Department if symptoms worsen or any other concerns. Prescriptions: Amoxicillin 875 mg PO Q12HR 7 Days #14 tablet Is patient prescribed a controlled substance at d/c from ED?: No Referrals: None,Stated [Primary Care Provider] - 1-2 days Time of Disposition: 17:00
[2024-09-27 17:07] VITALS: BP 120/87; PULSE 104; RESP 18
== END 2024-09-27 17:06 | disposition home or self-care (01) ==
LOC: EC 15:14
DX: H66.92 Otitis media, unspecified, left ear (principal); F17.290 Nicotine dependence, other tobacco product, uncomplicated; Z88.1 Allergy status to other antibiotic agents; Z88.8 Allergy status to other drugs, medicaments and biological substances
CPT/HCPCS: 99282